=== PATIENT | male | born 1950 | race Caucasian/White ===

== ENCOUNTER 2018-09-03 08:53 | Inpatient (IN) | payer BC, OTHER ==
--- NOTE | 2018-09-03 09:59 | PDOC ---
History of Present Illness - General Chief Complaint: Shortness of Breath Stated Complaint: DIFF BREATHING Time Seen by Provider: 09/03/18 09:55 History Source: Family (Son), [facility] Records Exam Limitations: No Limitations Past History - Travel Traveled outside of the country in the last 30 days: No Close contact w/someone who was outside of country & ill: No - Past Medical History Allergies/Adverse Reactions: Allergies Allergy/AdvReac Type Severity Reaction Status Date / Time No Known Allergies Allergy Verified 09/03/18 09:09 Home Medications: Ambulatory Orders Acetaminophen [Tylenol] 650 mg PO QID PRN 09/03/18 Clonazepam 0.125 mg PO DAILY 09/03/18 Clonazepam 0.25 mg PO DAILY 09/03/18 Clonazepam 0.5 mg PO HS 09/03/18 Doxepin HCl [Sinequan -] 10 mg PO HS 09/03/18 Escitalopram Oxalate [Lexapro -] 10 mg PO DAILY 09/03/18 Magnesium Hydrox 2400MG/30Ml [Milk of Magnesia -] 30 ml PO HS PRN 09/03/18 Polyethylene Glycol 3350 [Miralax (For Daily Use) -] 17 gm PO DAILY 09/03/18 Sennosides [Senna Lax] 17.2 mg PO HS 09/03/18 COPD: Yes Other medical history: hypixic brain injury - Suicide/Smoking/Psychosocial Hx Smoking History: Never smoked Review of Systems - Review of Systems Able to Perform ROS?: No (limited per pt condition) *Physical Exam - Vital Signs Last Vital Signs Temp Pulse Resp BP Pulse Ox 111 H 20 130/86 94 L 09/03/18 09:10 09/03/18 09:10 09/03/18 09:10 09/03/18 09:10 - Physical Exam Comments: febrile, 96% on 4L NC, HR in low 100s on exam. Pt with mild increased WOB, but lying comfortably on NC. Thin body habitus. 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 No midline spinal tenderness, step-offs, or crepitus. Head normocephalic, atraumatic. Eyes PERRLA, EOMI. Oropharynx without erythema or exudates, no LAD b/l. No nasal congestion, hearing intact. Clear heart sounds, S1/S2, no JVD, b/l pedal edema, or heart murmur. Coarse breath sounds throughout, diminished in b/l lower bases with crackles. + intercostal muscle use, improved after oxygenation. No abdominal or CVA tenderness to palpation, no rebound, no guarding. Abdomen soft, non-distended, and with normoactive bowel sounds. Skin without jaundice or rash. 09/03/18 12:15 ED Treatment Course - LABORATORY CBC & Chemistry Diagram: 09/03/18 09:39 09/03/18 09:39 Medical Decision Making - Medical Decision Making Pt was seen at bedside, also will be seen by attending Dr. Xavier. Pt presenting via EMS from [facility] with hypoxia and coughing up sputum and pieces of food. Pt was found this AM with oxygenation 78% on RA, which improved after suctioning and with NRB to 96%. Considering pneumonia (HAP vs aspiration considering recent difficulty swallowing) vs effusion vs pneumothorax vs ACS vs CVA. Unlikely PE as pt responding well to IVF hydration and supplemental oxygen. Story concerning for aspiration given recent choking on nectar and sedating medications. Ordered work-up including septic work-up, cardiac profile, blood cultures, UA, urine culture, chest x-ray. Provided 1 L IV NS and 1 g ofirmev for improvement of fever and likely dehydration. Will continue to reassess pt and monitor for symptomatic improvement. ECG: Sinus tachycardia (Hr 117, NC 152, QRS 84, QTc 435). T wave flattening in inferior and high lateral, TWI in lateral leads. No significant ST segment/ reciprocal changes. No prior ECG for comparison. Chest x-ray showed likely aspiration pneumonia LL lobe. Covering broad spectrum/aspiration abx with IV unasyn, IV vancomycin, IV azithromycin. Provided AM dose of klonopin as pt mildly agitated (per request of son). Placed consult for speech/swallow study. Paged hospitalist team for admission. 09/03/18 12:18 Pt admitted to hospitalist team (Dr. Soni). 09/03/18 13:52 *DC/Admit/Observation/Transfer Diagnosis at time of Disposition: History of traumatic brain injury Aspiration pneumonia due to food (regurgitated) Qualifiers: Laterality: left Lung location: lower lobe of lung Qualified Code(s): J69.0 - Pneumonitis due to inhalation of food and vomit - Discharge Dispostion Condition at time of disposition: Stable Decision to Admit order: Yes - Referrals - Patient Instructions - Post Discharge Activity
[2018-09-03 10:08] LABS: VENOUS PC02 40.7 mmHg (41-51); VENOUS PH 7.42 (7.31-7.41); VENOUS PO2 67.3 mmHg (30-40)
[2018-09-03 10:24] LABS: BASO % 0.2 % (0-2.0); HEMATOCRIT 44.3 % (35.4-49); HEMOGLOBIN 14.7 GM/dL (11.7-16.9); LYMPH % 5.4 % (8-40); MCH 30.4 pg (25.7-33.7); MCHC 33.3 g/dl (32.0-35.9); MEAN CELL VOLUME 91.2 fl (80-96); MEAN PLT VOLUME 8.7 fl (7.5-11.1); MONO % 4.5 % (3.8-10.2); NEUT % 89.9 % (42.8-82.8); RBC 4.86 M/mm3 (4.00-5.60); RDW 13.4 % (11.9-15.9); WHITE BLOOD COUNT 14.4 K/mm3 (4.0-10.0)
[2018-09-03] MEDS ORDERED: ACETAMINOPHEN 1000 MG/100 ML VIAL (NON FORMULARY) IVPB ONE (10:33)
[2018-09-03] MEDS ORDERED: SODIUM CHLORIDE 1,000 ML IV STA (10:34)
[2018-09-03 10:37] LABS: PLATELET COUNT 367 K/MM3 (134-434)
[2018-09-03 10:39] LABS: INR 1.18 (0.83-1.09); PROTHROMBIN TIME (PATIENT) 13.9 SEC (9.7-13.0)
[2018-09-03 10:41] LABS: ACTIVATED PTT 33.8 SECONDS (25.2-36.5); ALBUMIN 3.5 g/dl (3.4-5.0); ALK PHOS 151 U/L (45-117); ANION GAP 4 MMOL/L (8-16); BILIRUBIN,TOTAL 0.3 mg/dL (0.2-1); BLOOD UREA NITROGEN 27.6 mg/dL (7-18); CALCIUM 9.4 mg/dL (8.5-10.1); CHLORIDE 112 mmol/L (98-107); CO2 32 mmol/L (21-32); CREATININE 0.8 mg/dL (0.55-1.3); GLUCOSE,RANDOM 102 mg/dL (74-106); POTASSIUM 4.1 mmol/L (3.5-5.1); SGOT/AST 13 U/L (15-37); SGPT/ALT 22 U/L (13-61); SODIUM 148 mmol/L (136-145); TOT PROT 7.3 g/dl (6.4-8.2)
[2018-09-03] MEDS ORDERED: VANCOMYCIN IVPB ONE (10:48)
[2018-09-03] MEDS ORDERED: WATER IVPB ONE (10:48)
[2018-09-03] MEDS ORDERED: AMPICILLIN NA/SULBACTAM NA 3 GM in SODIUM CHLORIDE 100 ML IVPB ONE (10:48)
[2018-09-03] MEDS ORDERED: DEXTROSE 5% IVPB ONE (10:48)
[2018-09-03] MEDS ORDERED: AZITHROMYCIN IVPB 500 MG in DEXTROSE 5%-WATER - 250 ML IVPB ONE (10:50)
[2018-09-03] MEDS ORDERED: ACETAMINOPHEN INJECTION 100 ML IVPB ONE (10:59)
[2018-09-03] MEDS ORDERED: AZITHROMYCIN IVPB 500 MG/250 ML BAG IVPB ONE ×2 (11:00→20:15)
[2018-09-03] MEDS ORDERED: VANCOMYCIN 1 GRAM (PRE-DOCKED) 1,000 MG/250 ML BAG IVPB ONE (11:00)
[2018-09-03] MEDS ORDERED: clonazePAM 0.5 MG TABLET PO ONE (11:38)
--- NOTE | 2018-09-03 11:52 | EKG ---
Test Reason : Blood Pressure : / mmHG Vent. Rate : 117 BPM Atrial Rate : 117 BPM P-R Int : 152 ms QRS Dur : 084 ms QT Int : 312 ms P-R-T Axes : 075 066 094 degrees QTc Int : 435 ms SINUS TACHYCARDIA POSSIBLE LEFT ATRIAL ENLARGEMENT T WAVE ABNORMALITY, CONSIDER INFEROLATERAL ISCHEMIA ABNORMAL ECG NO PREVIOUS ECGS AVAILABLE Confirmed by SANDY PEGUERO MD ([id number]) on 09/03/2018 11:51:54 AM Referred By: Confirmed By:SANDY PEGUERO MD
--- NOTE | 2018-09-03 13:40 | PDOC ---
Documentation entered by Dora Man SCRIBE, acting as scribe for Jarred Xavier MD. Jarred Xavier MD: This documentation has been prepared by the scribe, Dora Man SCRIBE, under my direction and personally reviewed by me in its entirety. I confirm that the documentation accurately reflects all work, treatment, procedures, and medical decision making performed by me. Attending Attestation - Resident Resident Name: Rocio Bentley - ED Attending Attestation I have performed the following: I have examined & evaluated the patient, The case was reviewed & discussed with the resident, I agree w/resident's findings & plan, Exceptions are as noted - HPI HPI: 09/03/18 11:13 The patient is a 67-year-old male, with a past medical history of TBI (2017) s/ p cardiac arrest complicated by UTI and deterioration, COPD, who presents to the ED with increased shortness of breath. Patient was in a rehab center s/p TBI and SC. He was making improvements in walking and talking, but came down with a UTI a few months ago and was experiencing increased agitation. He was started on Zyprexa 5mg BID. Patients son who is also a physician was notified on (08/31/18) that the rehab center was giving the incorrect dosage of 10mg BID. The patient denies fevers, chills, nausea, vomiting, diarrhea, or abdominal pain. Denies any chest pain or palpitations. Allergies: NKA Social History: Denies any tobacco, alcohol or IVDA. Surgical History: None reported. - Physicial Exam PE: GENERAL: The patient is awake, HEAD: Normocephalic, atraumatic. EYES: extraocular movements intact, sclera anicteric, conjunctiva clear. ENT: Normal voice, Moist mucous membranes. NECK: Normal range of motion, supple LUNGS: raltes at bases, HEART: tachucardic without murmur, rub or gallop. ABDOMEN: Soft, nontender, No guarding, no rebound.No CVA tenderness EXTREMITIES: Normal range of motion, no edema. PSYCH: Normal mood, normal affect. SKIN: hot to touch, Dry, normal turgor - Medical Decision Making 09/03/18 10:43 67y F hx of anoxic brain injury sp cardiac arrests, uti, deterioration, copd, presents with sob, pt with recent history of choking/aspiration when eating. pt noted hypxoic here. history limited. ddx likely aspiratoin pna sepsis orderset obtained tylenol for fever 09/03/18 13:59 lbas reviewed noted for LLL pna will cover for aspiration/hcap will admit for further management CRITICAL CARE DOCUMENTATION: I spent 45 minutes of Critical Care time, excluding separately billable procedures, involving high complexity decision making to assess, manipulate and support vital system function(s) to treat single or multiple vital organ system failure and/or to prevent further life threatening deterioration of the patient' s condition.
[2018-09-03] MEDS ORDERED: ALBUTEROL SO4 2.5/IPRATROPIUM 0.5 INH SOL 3 ML VIAL.NEB. NEB PRN (14:21)
[2018-09-03] MEDS ORDERED: ACETAMINOPHEN 1000 MG/100 ML VIAL (NON FORMULARY) IVPB PRN (14:24)
--- NOTE | 2018-09-03 14:43 | HP ---
Admitting History and Physical - Primary Care Physician PCP: Dr. 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 Patient is a resident of [facility] for rehabilitation. He presents via EMS from [facility] with hypoxia and coughing up sputum and pieces of food. Patient was found this with oxygenation 78% on room air, which improved after suctioning and with NRB to 96%. He is currently on 2 liters of nasal cannula with stable saturations of 96%. Patient is unable to provide a history secondary to dementia and TBI, he is able to answer some questions but defers to his sons who are in the room during exam. Son reports that he was receiving an incorrect dose of [place]re[place] at the [place] and noted his father to be more lethargic. Patient reportedly was on Zyprexa 5mg BID, but was receiving Zyprexa 10mg BID instead. ED course: - 102.4F, heart rate 111, 94%, WBC 14.4 - Given Vancomycin, Azithromycin and Unasyn in the ED - vb.4, 24.7, 67.3, 93.2 - hypernatremia 148 - chest xray LLL pneumonia - ekg: Sinus tachycardia @ 117, qtc 35. (twave flat in inferior lead) no significant ST segment changes. Advanced Directives: Patient has a [facility] DNR order dated 03/21/18 alongside legal paperwork labeled "commission to guardian" naming Neil Ireland MD (son) as his guardian. 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, Other (traumatic brain injury) Cardiovascular: Yes: Other Pulmonary: Yes: COPD Psych: Yes: Depression, Other (TBI) - Advance Directives Advance Directives: Yes: DNR - Smoking History Smoking history: Never smoked Have you smoked in the past 12 months: No - Alcohol/Substance Use History of Substance Use: reports: None - Social History Usual Living Arrangement: Yes: Correction ADL: Support Services History of Recent Travel: No Home Medications - Allergies Allergies/Adverse Reactions: Allergies Allergy/AdvReac Type Severity Reaction Status Date / Time No Known Allergies Allergy Verified 09/03/18 09:09 - Home Medications Home Medications: Ambulatory Orders Acetaminophen [Tylenol] 650 mg PO QID PRN 09/03/18 Clonazepam 0.125 mg PO DAILY 09/03/18 Clonazepam 0.25 mg PO DAILY 09/03/18 Clonazepam 0.5 mg PO HS 09/03/18 Doxepin HCl [Sinequan -] 10 mg PO HS 09/03/18 Escitalopram Oxalate [Lexapro -] 10 mg PO DAILY 09/03/18 Magnesium Hydrox 2400MG/30Ml [Milk of Magnesia -] 30 ml PO HS PRN 09/03/18 Polyethylene Glycol 3350 [Miralax (For Daily Use) -] 17 gm PO DAILY 09/03/18 Sennosides [Senna Lax] 17.2 mg PO HS 09/03/18 Review of Systems Unable to obtain ROS, reason: dementia and TBI Physical Examination Vital Signs: Vital Signs Temperature 102.4 F H 09/03/18 09:45 Pulse Rate 111 H 09/03/18 09:10 Respiratory Rate 20 09/03/18 09:10 Blood Pressure 130/86 09/03/18 09:10 O2 Sat by Pulse Oximetry (%) 94 L 09/03/18 09:45 Constitutional: Yes: Calm, Mild Distress Eyes: Yes: WNL HENT: Yes: Atraumatic Neck: Yes: Supple Cardiovascular: Yes: Tachycardia Respiratory: Yes: Accessory Muscle Use, On Nasal O2, Poor Air Entry, Rales, Rhonchi, SOB, SOB on Exertion Gastrointestinal: Yes: WNL ...Rectal Exam: Yes: Deferred Musculoskeletal: Yes: Muscle Weakness Edema: No Integumentary: Yes: WNL Neurological: Yes: Confusion, Lethargy, Unsteady Gait, Weakness Psychiatric: Yes: Agitated (dementia with agitation) Labs: CBC, BMP 09/03/18 09:39 09/03/18 09:39 Imaging - Results Chest X-ray: Image Reviewed EKG: Image Reviewed Problem List - Problems (1) Sepsis Assessment/Plan: Patient presents to the ED with acute hypoxia, non productive cough, worsening AMS and leukocytosis Chest xray shows left lower lobe infiltrate On exam, patient has congestion on anterior lungs, his left lung is clear compared to the right Sepsis likely secondary to acute aspiration pneumonia Given Azithromycin, Vanco and Unasyn in the ED Consulted ID, and recommend patient to be started on Zosyn Will further: - make npo pending speech and swallow - continue home meds with applesauce - maintain aspiration precautions - tylenol ivpb for fevers - Zosyn per ID recommendations Awaiting further recommendations per ID and Speech/swallow Code(s): A41.9 - SEPSIS, UNSPECIFIED ORGANISM (2) Aspiration pneumonia due to food (regurgitated) Assessment/Plan: keep NPO Patient likely aspirating secondary to increased lethargy from NH from increased dose of Zyprexa Will hold Zyprexa until mental status is back to his baseline Code(s): J69.0 - PNEUMONITIS DUE TO INHALATION OF FOOD AND VOMIT Qualifiers: Laterality: left Lung location: lower lobe of lung Qualified Code(s): J69.0 - Pneumonitis due to inhalation of food and vomit (3) Major depressive disorder Assessment/Plan: continue Clonazepam scheduled and lexapro hold Zyprexa Code(s): F32.9 - MAJOR DEPRESSIVE DISORDER, SINGLE EPISODE, UNSPECIFIED (4) Traumatic brain injury of unknown intent Assessment/Plan: Monitor mental status and agitation Code(s): S06.9X9A - UNSP INTRACRANIAL INJURY W LOC OF UNSP DURATION, INIT (5) History of chronic constipation Code(s): Z87.19 - PERSONAL HISTORY OF OTHER DISEASES OF THE DIGESTIVE SYSTEM (6) Requires aspiration precautions Assessment/Plan: Keep NPO, allow applesauce with medications Code(s): Z91.89 - OTH PERSONAL RISK FACTORS, NOT ELSEWHERE CLASSIFIED (7) History of traumatic brain injury Assessment/Plan: monitor mental status Code(s): Z87.820 - PERSONAL HISTORY OF TRAUMATIC BRAIN INJURY (8) Restlessness and agitation Assessment/Plan: On scheduled Clonozepam Code(s): R45.1 - RESTLESSNESS AND AGITATION (9) Prophylactic measure Assessment/Plan: fen NS @ 75/cchr monitor electrolyltes NPO pending swallow evaluation prophy SCDs physical therapy Code(s): Z29.9 - ENCOUNTER FOR PROPHYLACTIC MEASURES, UNSPECIFIED Visit type - Emergency Visit Emergency Visit: Yes ED Registration Date: 09/03/18 Care time: The patient presented to the Emergency Department on the above date and was hospitalized for further evaluation of their emergent condition. - New Patient This patient is new to me today: Yes Date on this admission: 09/03/18 - Critical Care Critical Care patient: No
[2018-09-03] MEDS ORDERED: SODIUM CHLORIDE 1,000 ML IV SCH (16:45)
[2018-09-03] MEDS ORDERED: PIPERACILLIN/TAZOBACTAM 3.375 GM VIAL IVPB ONE (18:08)
[2018-09-03] MEDS ORDERED: DEXTROSE 5%-WATER - 50 ML IVPB ONE (18:08)
[2018-09-03] MEDS: PIPERACILLIN/TAZOB 3.375 GM 3.375 GM in DEXTROSE 5%-WATER - 50 ML IVPB SCH (18:39)
[2018-09-03] MEDS: SODIUM CHLORIDE 1,000 ML IV SCH (20:08)
[2018-09-03] MEDS: ALBUTEROL SO4 2.5/IPRATROPIUM 0.5 INH SOL 3 ML VIAL.NEB. NEB SCH (20:32)
[2018-09-03] MEDS: HEPARIN NA (PORCINE) 5,000 UNITS/ML 1ML VIAL SQ SCH (21:19)
[2018-09-03] MEDS: clonazePAM 0.5 MG TABLET PO SCH (22:04)
[2018-09-03] MEDS: DOXEPIN HCL 10 MG CAPSULE PO SCH (22:09)
[2018-09-04] MEDS ORDERED: PIPERACILLIN/TAZOBACTAM 3.375 GM VIAL IVPB ONE ×3 (00:03→17:40)
[2018-09-04] MEDS ORDERED: DEXTROSE 5%-WATER - 50 ML IVPB ONE ×3 (00:03→17:40)
[2018-09-04] MEDS: ALBUTEROL SO4 2.5/IPRATROPIUM 0.5 INH SOL 3 ML VIAL.NEB. NEB SCH ×5 (00:35→20:45)
[2018-09-04] MEDS: PIPERACILLIN/TAZOB 3.375 GM 3.375 GM in DEXTROSE 5%-WATER - 50 ML IVPB SCH ×4 (01:34→17:50)
--- NOTE | 2018-09-04 08:32 | PN ---
Progress Note, Physician Chief Complaint: no overnight agitation or events reported. pt laying comfortably in bed. respirations easy and unlabored. 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 Patient is a resident of [facility] for rehabilitation. He presents to the ED on 09/03/2018 via EMS from [facility] with hypoxia and coughing up sputum and pieces of food. Patient was found with oxygenation 78% on room air, which improved after suctioning and with NRB to 96% . He is currently on 2 liters of nasal cannula with stable saturations of 96% . Patient is unable to provide a history secondary to dementia and TBI, he is able to answer some questions. In the ED son reported that patient was receiving an incorrect dose of Zyprexa at the [place] and noted his father to be more lethargic. Patient reportedly was on Zyprexa 5mg BID, but was receiving Zyprexa 10mg BID instead. He is being admitted for sepsis likely secondary to aspiration pneumonia and has been started on Zosyn. He remains NPO pending a swallow evaluation. - Current Medication List Current Medications: Active Medications Acetaminophen (Ofirmev Injection -) 1,000 mg IVPB Q6H PRN PRN Reason: FEVER Albuterol/Ipratropium (Duoneb -) 1 amp NEB Q6H [facility] Last Admin: 09/04/18 07:25 Dose: 1 amp Clonazepam (Klonopin -) 0.5 mg PO [facility] Last Admin: 09/03/18 22:04 Dose: 0.5 mg Clonazepam (Klonopin -) 0.25 mg PO DAILY [facility] Doxepin HCl (Sinequan -) 10 mg PO [facility] Last Admin: 09/03/18 22:09 Dose: 10 mg Escitalopram Oxalate (Lexapro -) 10 mg PO DAILY [facility] Heparin Sodium (Porcine) (Heparin -) 5,000 unit SQ BID [facility] Last Admin: 09/03/18 21:19 Dose: 5,000 unit Piperacillin Sod/Tazobactam (Sod 3.375 gm/ Dextrose) 50 mls @ 100 mls/hr IVPB Q8H-IV [facility]; Protocol Piperacillin Sod/Tazobactam (Sod 3.375 gm/ Dextrose) 50 mls @ 100 mls/hr IVPB Q8H-IV [facility]; Protocol Stop: 09/04/18 10:29 Last Admin: 09/04/18 01:34 Dose: 100 mls/hr Sodium Chloride (Normal Saline -) 1,000 mls @ 75 mls/hr IV ASDIR [facility]ARA Stop: 09/04/18 16:32 Last Admin: 09/03/18 20:08 Dose: Not Given - Objective Vital Signs: Vital Signs Temperature 98.7 F 09/04/18 04:00 Pulse Rate 75 09/04/18 04:00 Respiratory Rate 18 09/04/18 04:00 Blood Pressure 112/68 09/04/18 04:00 O2 Sat by Pulse Oximetry (%) 96 09/03/18 21:00 Constitutional: Yes: No Distress, Calm Eyes: Yes: WNL HENT: Yes: WNL, Atraumatic Neck: Yes: Supple Cardiovascular: Yes: Regular Rate and Rhythm Respiratory: Yes: Diminished, On Nasal O2, Rhonchi Gastrointestinal: Yes: Normal Bowel Sounds, Soft ...Rectal Exam: Yes: Deferred Genitourinary: Yes: WNL Musculoskeletal: Yes: Muscle Weakness Extremities: Yes: WNL Edema: No Integumentary: Yes: WNL Wound/Incision: Yes: Clean/Dry Neurological: Yes: Alert, Confusion Labs: CBC, BMP 09/03/18 09:39 09/03/18 09:39 INR, PTT INR 1.18 (0.83-1.09) H 09/03/18 09:39 - ....Imaging Chest X-ray: Report Reviewed EKG: Image Reviewed Problem List - Problems (1) Sepsis Assessment/Plan: Patient presents to the ED with acute hypoxia, non productive cough, worsening AMS and leukocytosis Chest xray shows left lower lobe infiltrate On exam, patient has congestion on anterior lungs, his left lung is clear compared to the right Sepsis likely secondary to acute aspiration pneumonia Given Azithromycin, Vanco and Unasyn in the ED, started on Zosyn per ID Modified barium swallow recommendations noted and added to diet: dysphagia pureed, honey thick fluids. Appreciate ID and swallow evaluation recommendations. Code(s): A41.9 - SEPSIS, UNSPECIFIED ORGANISM (2) Aspiration pneumonia due to food (regurgitated) Assessment/Plan: continue aspiration precautions -Patient to sit up at all times with meals -feed small amounts slowly -do not lay flat after meals -do not eat or drink with a straw -daily mouth care -per mbs: honey thick liquids on teaspoon only, have patient swallow hard twice with each teaspoon, crush meds on honey thick liq. speech and swallow following, recommendations noted and appreciated. Code(s): J69.0 - PNEUMONITIS DUE TO INHALATION OF FOOD AND VOMIT Qualifiers: Laterality: left Lung location: lower lobe of lung Qualified Code(s): J69.0 - Pneumonitis due to inhalation of food and vomit (3) Major depressive disorder Assessment/Plan: continue Clonazepam scheduled and lexapro hold Zyprexa Code(s): F32.9 - MAJOR DEPRESSIVE DISORDER, SINGLE EPISODE, UNSPECIFIED (4) Traumatic brain injury of unknown intent Assessment/Plan: Monitor mental status and agitation Code(s): S06.9X9A - UNSP INTRACRANIAL INJURY W LOC OF UNSP DURATION, INIT (5) History of chronic constipation Assessment/Plan: colace liquid, bowel regimen Code(s): Z87.19 - PERSONAL HISTORY OF OTHER DISEASES OF THE DIGESTIVE SYSTEM (6) Requires aspiration precautions Assessment/Plan: aspiration precautions as noted above Code(s): Z91.89 - OTH PERSONAL RISK FACTORS, NOT ELSEWHERE CLASSIFIED (7) History of traumatic brain injury Assessment/Plan: monitor mental status Code(s): Z87.820 - PERSONAL HISTORY OF TRAUMATIC BRAIN INJURY (8) Restlessness and agitation Assessment/Plan: On scheduled Clonozepam Code(s): R45.1 - RESTLESSNESS AND AGITATION (9) Prophylactic measure Assessment/Plan: fen NS @ 75/cchr until fully tolerating meals monitor electrolyltes honey thick liquids, aspiration precautions, dysphagia pureed diet. prophy SCDs physical therapy Code(s): Z29.9 - ENCOUNTER FOR PROPHYLACTIC MEASURES, UNSPECIFIED Visit type - Emergency Visit Emergency Visit: Yes ED Registration Date: 09/03/18 Care time: The patient presented to the Emergency Department on the above date and was hospitalized for further evaluation of their emergent condition. - New Patient This patient is new to me today: No - Critical Care Critical Care patient: No - Discharge Referral [facility]erred to [facility] No
[2018-09-04 08:53] LABS: HEMATOCRIT 34.2 % (35.4-49); HEMOGLOBIN 11.4 GM/dL (11.7-16.9); MCH 30.3 pg (25.7-33.7); MCHC 33.2 g/dl (32.0-35.9); MEAN CELL VOLUME 91.2 fl (80-96); MEAN PLT VOLUME 8.6 fl (7.5-11.1); PLATELET COUNT 285 K/MM3 (134-434); RBC 3.75 M/mm3 (4.00-5.60); RDW 13.4 % (11.9-15.9); WHITE BLOOD COUNT 12.3 K/mm3 (4.0-10.0)
[2018-09-04 09:26] LABS: INR 1.31 (0.83-1.09); PROTHROMBIN TIME (PATIENT) 15.5 SEC (9.7-13.0)
[2018-09-04] MEDS: ESCITALOPRAM OXALATE 10 MG TABLET (FP) PO SCH (09:39)
[2018-09-04] MEDS: clonazePAM 0.5 MG TABLET PO SCH ×2 (09:39→21:45)
[2018-09-04] MEDS: HEPARIN NA (PORCINE) 5,000 UNITS/ML 1ML VIAL SQ SCH ×2 (09:39→21:45)
[2018-09-04 09:49] LABS: ALBUMIN 2.6 g/dl (3.4-5.0); BILIRUBIN,TOTAL 0.8 mg/dL (0.2-1); BLOOD UREA NITROGEN 22.2 mg/dL (7-18); CREATININE 0.8 mg/dL (0.55-1.3); MAGNESIUM 2.1 mg/dL (1.8-2.4); PHOSPHOROUS 3.2 mg/dL (2.5-4.9); POTASSIUM 3.7 mmol/L (3.5-5.1); TOT PROT 5.5 g/dl (6.4-8.2)
[2018-09-04] MEDS: SODIUM CHLORIDE 1,000 ML IV SCH (09:53)
[2018-09-04] MEDS ORDERED: clonazePAM 0.5 MG TABLET PO SCH (10:00)
--- NOTE | 2018-09-04 12:31 | PN ---
Progress Note (short form) - Note Progress Note: ID CONSULT DICTATED PROBABLE ASP PNEUMONIA FEVER/TACHYCARDIA/ LEUKOCYTOSIS R/O SEPSIS SECONDARY TO LUNG SOURCE HX ANOXIC /TRAUMATIC BRAIN INJURY AWAIT C/S [facility] WITH ZOSYN
--- NOTE | 2018-09-04 13:01 | CONSULT ---
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 Patient is a resident of [facility] for rehabilitation. He presents via EMS from [facility] with hypoxia and coughing up sputum and pieces of food. Patient was found this with oxygenation 78% on room air, which improved after suctioning and with NRB to 96%. He is currently on 2 liters of nasal cannula with stable saturations of 96%. ID CONSULT - PROBABLE ASP PNEUMONIA FEVER/TACHYCARDIA/ LEUKOCYTOSIS R/O SEPSIS SECONDARY TO LUNG SOURCE HX ANOXIC /TRAUMATIC BRAIN INJURY History Source: Medical Record Limitations to Obtaining History: Clinical Condition, Dementia - Past Medical History [facility]: Yes: Dementia, Other (traumatic brain injury) Cardiovascular: Yes: Other Pulmonary: Yes: COPD Psych: Yes: Depression, Other (TBI) - Advance Directives Advance Directives: Yes: DNR - Smoking History Smoking history: Never smoked Have you smoked in the past 12 months: No - Alcohol/Substance Use Hx Alcohol Use: No History of Substance Use: reports: None - Social History ADL: Support Services History of Recent Travel: No History - Admission Reason For Visit: TRAUMATIC BRAIN INJURY;ASPIRATION PNEUMONIA;PNEUMO - Diagnostics X-ray: Report Reviewed (LLL PNA) - General Mental Status: Awake and Alert, Able to Follow Commands, Forgetful, Vague, Confused, Flat Affect Attention: Distractible, Moderate Impairment Ability to Follow Directions: Fair Head/Neck Control: Fair - Hearing Hearing: Normal Hearing Aide: No With Patient: No Speech Evaluation - Communication Primary Language: GABONESE Communication: Yes: Simple Responses Oral Expression Ability: Yes: Mild Impairment, Moderate Impairment - Speech Production Able to Make Needs Known: Yes: Mildly Impaired, Moderately Impaired Intelligibility: Yes: Mildly Impaired - Speech Characteristics Voice Loudness: Mildly Soft/Quiet Voice Pitch: Yes: Normal Voice Phonatory-based Quality: Yes: Dysphonia Speech Pattern: Impaired Speech Clarity: < 50% Nasal Resonance: Hypernasal Articulation: Yes: Imprecise Dysfluency: Yes: Clonic Rate of Speech: Too Slow - Language/Auditory Comprehension Follows: Yes: 1 Stage Simple Commands Observation: Able to respond to yes/no queries: Yes, Yes/No Confusion: Yes ( needs repetition, confused), Comprehends Conversational Speech: Yes (simple), Benefits from Slow Speech: Yes, Benefits from Repetiton: Yes, Benefits from Increased Volume of Speech: Yes - Language/Verbal Expression Aphasia: Yes: Anomia Able to Respond to Simple Queries: Yes: Mildly Impaired, Moderately Impaired Able to Communicate Wants and Needs: Yes: Mildly Impaired, Moderately Impaired Functional Communication Status: Yes: Mildly Impaired, Moderately Impaired - Memory/Perception assisted Memory: Yes: Moderately Impaired (suspected) - Swallow Evaluation/Bedside Assessment Current Nutritional Intake: NPO, Other (meds) Oral Secretions: Yes: Tongue Coated (receiving mouth care) Dentition: Yes: Adequate Facial Symmetry at Rest: Symmetrical Facial Symmetry on Retraction: Symmetrical Against Resistance Opening: Weak Against Resistance Closing: Weak Lingual Movement: Symmetric Lingual Movement Strgth Against Opposition: Reduced Lingual Movement Characteristics: Normal Gag Reflex: Strong Velopharyngeal Movement: Normal Laryngeal Movement: Labored,delay initiation Bolus Size: Small Labial Seal: WFL (needs reminders to close mouth and swallow) Oral Prep Time: Increased Timing of Swallow: Delayed Coughing/Throat Clear: Yes (thin liquid) Recommendations - Speech Evaluation, Impression/Plan Impression: Suspect distractibility adversely affecting swallowing function. Aspiration on thin liquid - Disposition Discharge to: Nursing Home Facility - Dysphagia Impressions/Plan Swallowing Skills: Impaired Dysphagia Impressions: Ongoing Evaluation, Suspect Aspiration *Silent aspiration: cannot be R/O at bedside Recommendations: Modified Barium Swallow - Recommendations Medication Administration: Crushed with applesauce
--- NOTE | 2018-09-04 14:35 | CONS ---
INFECTIOUS DISEASE CONSULTATION DATE OF CONSULTATION: DATE OF DICTATION: 09/04/2018 HISTORY: The patient is a 67-year-old male with a history of anoxic brain injury status post cardiopulmonary arrest in 2017 evaluated for pneumonia. History would be from the chart as well as the patient's son by phone. He has been in a long term facility for the past 2 years after a cardiopulmonary arrest complicated by anoxic brain injury. He was noted to be short of breath at the facility with a moist cough. He was also noted to be hypoxemic with an O2 saturation of 78% on room air. He was transferred to the emergency room where the patient was febrile to 102.4 and noted to have a white blood cell count of 14.4. Cultures were obtained. He was empirically treated with Unasyn, vancomycin, Zithromax. At the present time, he is awake and alert; however, he is unable to give any additional history. Patient appears demented. His breathing is nonlabored. He is noted to have cough. No documented history of resistant respiratory tract pathogens. The patient was high functioning until 2 years ago. 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 While jogging in [place] in 2017, he suffered a cardiopulmonary arrest and was resuscitated after 10 minutes. He suffered anoxic brain injury as a result. Since that time, he has been in various rehabilitation facilities. His baseline now is he is dependent in activities of daily living. PAST MEDICAL HISTORY: Also includes COPD, anxiety, depression. ALLERGIES: No known allergies. MEDICATIONS: Include Tylenol, albuterol, Klonopin, Lexapro. SOCIAL HISTORY: As per HPI. He was a former athlete. Nonsmoker, nondrinker. SYSTEMS REVIEW: Neurologic: Positive for anoxic brain injury and dementia. Cardiac: Negative chest pain or palpitations. Respiratory: As per HPI. Gastrointestinal: Negative vomiting or diarrhea. Genitourinary: Negative for urinary tract infection. LABORATORY DATA: White count on admission 14.4, presently 12.3, hematocrit 34.2, platelet count 285, creatinine 0.8. Liver enzymes normal. Chest x-ray: Unable to visualize left hemidiaphragm. PHYSICAL EXAMINATION: General: He is awake but confused. He is in no acute distress. Breathing is nonlabored. He is noted to have a cough. Vital Signs: Temperature 98.7, maximum temperature 102.4, blood pressure 112/68, pulse 75 regular, respirations 18 per minute. HEENT: Sclerae anicteric. Heart: Sounds S1, S2. Lungs: Rales at the bases bilaterally. Abdomen: Soft. No tenderness elicited. No mass, rebound, or rigidity. Extremities: Negative for edema. IMPRESSION: 1. Probable aspiration, left lower lobe pneumonia. 2. Fever, tachycardia, leukocytosis, rule out sepsis secondary to lung source. 3. History of anoxic/traumatic brain injury. Await sepsis workup. Empiric antibiotic coverage healthcare-acquired pulmonary pathogens with Zosyn. Aspiration precautions. Case was discussed with patient's son, who is a physician, by phone. Thank you for the kind referral. GLORIA MENDOZA M.D. [id number]
[2018-09-04] MEDS ORDERED: PT OWN MED DRAWER 7, Y5N ONE (21:15)
[2018-09-04] MEDS: DOXEPIN HCL 10 MG CAPSULE PO SCH (21:45)
[2018-09-04] MEDS ORDERED: SENNOSIDES/DOCUSATE COMBO (SENNA PLUS) TABLET (UD) PO SCH (22:00)
[2018-09-05] MEDS ORDERED: DEXTROSE 5%-WATER - 50 ML IVPB ONE ×3 (01:37→17:46)
[2018-09-05] MEDS ORDERED: PIPERACILLIN/TAZOBACTAM 3.375 GM VIAL IVPB ONE ×3 (01:37→17:46)
[2018-09-05] MEDS: PIPERACILLIN/TAZOB 3.375 GM 3.375 GM in DEXTROSE 5%-WATER - 50 ML IVPB SCH ×3 (02:00→17:58)
[2018-09-05] MEDS: ALBUTEROL SO4 2.5/IPRATROPIUM 0.5 INH SOL 3 ML VIAL.NEB. NEB SCH ×4 (07:35→20:30)
--- NOTE | 2018-09-05 09:56 | CON.PULM ---
Consult Consult Specialty:: PULMONARY Referred by:: MIL Gonzalez Reason for Consultation:: shortness of breath - History of Present Illness Chief Complaint: shortness of breath History of Present Illness: 67yo male with h/o TBI, depression/anxiety, COPD, dementia [facility] and [facility]ing. Found to be hypoxic to 78% on room air and LLL infiltrate on CXR. Currently denies any shortness of breath, cough or wheezing. Was febrile to 102.4 on presentation. 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: Yes: Dementia, Other (traumatic brain injury) Cardio/Vascular: Yes: Other Pulmonary: Yes: COPD Psych: Yes: Depression, Other (TBI) - Alcohol/Substance Use Hx Alcohol Use: No History of Substance Use: reports: None - Smoking History Smoking history: Never smoked Have you smoked in the past 12 months: No - Social History ADL: Support Services History of Recent Travel: No Home Medications - Allergies Allergies/Adverse Reactions: Allergies Allergy/AdvReac Type Severity Reaction Status Date / Time No Known Allergies Allergy Verified 09/03/18 09:09 - Home Medications Home Medications: Ambulatory Orders Acetaminophen [Tylenol] 650 mg PO QID PRN 09/03/18 Clonazepam 0.125 mg PO DAILY 09/03/18 Clonazepam 0.25 mg PO DAILY 09/03/18 Clonazepam 0.5 mg PO HS 09/03/18 Doxepin HCl [Sinequan -] 10 mg PO HS 09/03/18 Escitalopram Oxalate [Lexapro -] 10 mg PO DAILY 09/03/18 Magnesium Hydrox 2400MG/30Ml [Milk of Magnesia -] 30 ml PO HS PRN 09/03/18 Polyethylene Glycol 3350 [Miralax (For Daily Use) -] 17 gm PO DAILY 09/03/18 Sennosides [Senna Lax] 17.2 mg PO HS 09/03/18 Review of Systems - Review of Systems Constitutional: denies: Chills, Fever Eyes: denies: Recent Change in Vision HENT: denies: Nasal Congestion, Throat Pain Neck: denies: Stiffness, Tenderness Cardiovascular: denies: Chest Pain, Shortness of Breath Respiratory: denies: Cough, Wheezing Gastrointestinal: denies: Abdominal Pain, Nausea, Vomiting Genitourinary: denies: Dysuria, Hematuria Neurological: denies: Dizziness, Headache Endocrine: denies: Unexplained Weight Loss Physical Exam Vital Sings: Vital Signs Temperature 98.8 F 09/05/18 06:00 Pulse Rate 70 09/05/18 06:00 Respiratory Rate 20 09/05/18 06:00 Blood Pressure 124/77 09/05/18 06:00 O2 Sat by Pulse Oximetry (%) 99 09/04/18 21:00 Constitutional: Yes: Calm Eyes: Yes: Conjunctiva Clear, EOM Intact HENT: Yes: Atraumatic, Normocephalic Neck: Yes: Supple, Trachea Midline Cardiovascular: Yes: Regular Rate and Rhythm Respiratory: Yes: Diminished (decreased breath sounds at the bases) ...Clubbing: No Gastrointestinal: Yes: Normal Bowel Sounds, Soft. No: Tenderness Edema: No Neurological: Yes: Alert, Confusion Labs: CBC, BMP 09/04/18 07:35 09/04/18 07:35 Imaging - Results Chest X-ray: Report Reviewed, Image Reviewed (LLL infiltrate) Problem List - Problems (1) Pneumonia Code(s): J18.9 - PNEUMONIA, UNSPECIFIED ORGANISM (2) Sepsis Code(s): A41.9 - SEPSIS, UNSPECIFIED ORGANISM Assessment/Plan Pneumonia likely Aspiration Sepsis COPD Dementia h/o TBI - continue antibiotics per ID - f/u cultures - O2 to keep SpO2 >90% - inhaled bronchodilators as needed - aspiration precautions - DVT prophylaxis Thank you for this consult Alexander Love MD
[2018-09-05] MEDS ORDERED: DOCUSATE NA 100 MG/10 ML UNIT-DOSE CUPS PO PRN (10:00)
[2018-09-05] MEDS: clonazePAM 0.5 MG TABLET PO SCH ×2 (10:22→21:44)
[2018-09-05] MEDS: ESCITALOPRAM OXALATE 10 MG TABLET (FP) PO SCH (10:22)
[2018-09-05] MEDS: HEPARIN NA (PORCINE) 5,000 UNITS/ML 1ML VIAL SQ SCH ×2 (10:22→21:43)
--- NOTE | 2018-09-05 12:52 | PN ---
Progress Note, Physician Chief Complaint: hypoxia History of Present Illness: feeling ok, no events overnight. Afebrile. - Current Medication List Current Medications: Active Medications Acetaminophen (Ofirmev Injection -) 1,000 mg IVPB Q6H PRN PRN Reason: FEVER Albuterol/Ipratropium (Duoneb -) 1 amp NEB RQID [facility] Last Admin: 09/05/18 11:31 Dose: 1 amp Clonazepam (Klonopin -) 0.5 mg PO [facility] Last Admin: 09/04/18 21:45 Dose: 0.5 mg Clonazepam (Klonopin -) 0.25 mg PO DAILY [facility] Last Admin: 09/05/18 10:22 Dose: 0.25 mg Docusate Sodium (Colace Liquid -) 100 mg PO DAILY PRN PRN Reason: CONSTIPATION Doxepin HCl (Sinequan -) 10 mg PO [facility] Last Admin: 09/04/18 21:45 Dose: 10 mg Escitalopram Oxalate (Lexapro -) 10 mg PO DAILY [facility] Last Admin: 09/05/18 10:22 Dose: 10 mg Heparin Sodium (Porcine) (Heparin -) 5,000 unit SQ BID [facility] Last Admin: 09/05/18 10:22 Dose: 5,000 unit Piperacillin Sod/Tazobactam (Sod 3.375 gm/ Dextrose) 50 mls @ 100 mls/hr IVPB Q8H-IV [facility]; Protocol Last Admin: 09/05/18 10:20 Dose: 100 mls/hr Senna/Docusate Sodium (Pericolace -) 2 tablet PO [facility] Stop: 09/05/18 17:23 Last Admin: 09/04/18 21:45 Dose: 2 tablet - Objective Vital Signs: Vital Signs Temperature 98.8 F 09/05/18 06:00 Pulse Rate 70 09/05/18 06:00 Respiratory Rate 20 09/05/18 06:00 Blood Pressure 124/77 09/05/18 06:00 O2 Sat by Pulse Oximetry (%) 99 09/04/18 21:00 Constitutional: Yes: Well Nourished, No Distress, Calm Cardiovascular: Yes: WNL, Regular Rate and Rhythm Respiratory: Yes: On Nasal O2, Rales (at bases). No: Accessory Muscle Use, Cough Gastrointestinal: Yes: WNL, Normal Bowel Sounds, Soft Musculoskeletal: Yes: WNL Extremities: Yes: WNL Edema: No Neurological: Yes: Alert, Oriented (to person only) Labs: CBC, BMP 09/04/18 07:35 09/04/18 07:35 INR, PTT INR 1.31 (0.83-1.09) H 09/04/18 07:35 Problem List - Problems (1) Aspiration pneumonia due to food (regurgitated) Code(s): J69.0 - PNEUMONITIS DUE TO INHALATION OF FOOD AND VOMIT Qualifiers: Laterality: left Lung location: lower lobe of lung Qualified Code(s): J69.0 - Pneumonitis due to inhalation of food and vomit (2) History of traumatic brain injury Code(s): Z87.820 - PERSONAL HISTORY OF TRAUMATIC BRAIN INJURY (3) Major depressive disorder Code(s): F32.9 - MAJOR DEPRESSIVE DISORDER, SINGLE EPISODE, UNSPECIFIED (4) Requires aspiration precautions Code(s): Z91.89 - OTH PERSONAL RISK FACTORS, NOT ELSEWHERE CLASSIFIED (5) Restlessness and agitation Code(s): R45.1 - RESTLESSNESS AND AGITATION (6) Sepsis Code(s): A41.9 - SEPSIS, UNSPECIFIED ORGANISM (7) Hypernatremia Code(s): E87.0 - HYPEROSMOLALITY AND HYPERNATREMIA Assessment/Plan Assessment: Acute Hypoxic Respiratory Failure/Sepsis secondary to aspiration LLL pneumonia COPD Dementia h/o TBI Major Depressive Disorder Chronic Constipation Plan: Continue abx, on zosyn for hcap Inhaled bronchodilators Aspiration precautions Legionella/strep neg, blood and sputum cx neg Supplemental 02 as needed Hypernatremia improving, fluids DC, awaiting repeat labs Speech/Swallow eval noted, barium swallow recs noted, agree with recommendations ID/pulm eval appreciated Mood stable, continue with clonazepam, doxepin and lexapro Continue with bowel regimen
--- NOTE | 2018-09-05 15:57 | PN ---
Progress Note, Physician History of Present Illness: LETHARGIC TODAY OFFERS NO COMPLAINTS TEMPS DOWN AFEBRILE WBC IMPROVED BC (-) SPUTUM C/S NORMAL YOLANDA - Current Medication List Current Medications: Active Medications Acetaminophen (Ofirmev Injection -) 1,000 mg IVPB Q6H PRN PRN Reason: FEVER Albuterol/Ipratropium (Duoneb -) 1 amp NEB [facility]ID [facility] Last Admin: 09/05/18 11:31 Dose: 1 amp Clonazepam (Klonopin -) 0.[address] [facility] Last Admin: 09/04/18 21:45 Dose: 0.5 mg Clonazepam (Klonopin -) 0.25 mg PO DAILY [facility] Last Admin: 09/05/18 10:22 Dose: 0.25 mg Docusate Sodium (Colace Liquid -) 100 mg PO DAILY PRN PRN Reason: CONSTIPATION Doxepin HCl (Sinequan -) [address] [facility] Last Admin: 09/04/18 21:45 Dose: 10 mg Escitalopram Oxalate (Lexapro -) 10 mg PO [facility] Last Admin: 09/05/18 10:22 Dose: 10 mg Heparin Sodium (Porcine) (Heparin -) 5,000 unit SQ BID [facility] Last Admin: 09/05/18 10:22 Dose: 5,000 unit Piperacillin Sod/Tazobactam (Sod 3.375 gm/ Dextrose) 50 mls @ 100 mls/hr IVPB Q8H-[facility]; Protocol Last Admin: 09/05/18 10:20 Dose: 100 mls/hr Senna/Docusate Sodium (Pericolace -) [address] [facility] Stop: 09/05/18 17:23 Last Admin: 09/04/18 21:45 Dose: 2 tablet - Objective Vital Signs: Vital Signs Temperature 98.8 F 09/05/18 06:00 Pulse Rate 70 09/05/18 06:00 Respiratory Rate 20 09/05/18 06:00 Blood Pressure 124/77 09/05/18 06:00 O2 Sat by Pulse Oximetry (%) 99 09/04/18 21:00 Constitutional: Yes: No Distress, Thin Cardiovascular: Yes: Regular Rate and Rhythm, S1, S2 Respiratory: Yes: Diminished Gastrointestinal: Yes: Normal Bowel Sounds, Soft. No: Tenderness Edema: No Labs: CBC, BMP 09/04/18 07:35 09/04/18 07:35 INR, PTT INR 1.31 (0.83-1.09) H 09/04/18 07:35 Assessment/Plan PROBABLE ASP LLL PNEUMONIA R/O SEPSIS SECONDARY TO PNEUMONIA HX ANOXIC BRAIN INJURY AWAIT C/S CONTINUE EMPIRIC ZOSYN ASP PRECAUTIONS
--- NOTE | 2018-09-05 16:05 | PN ---
Progress Note, [employer]INGER - Note Progress Note: Selected Entries 09/04/18 09/04/18 09/04/18 04:00 09:40 16:07 Breakfast Diet Tolerated Supper Temperature 98.7 F 98.3 F 99.2 F 09/04/18 09/04/18 09/04/18 16:55 20:00 22:46 Breakfast Diet Tolerated Supper 100% Temperature 98.2 F 99.2 F 09/05/18 09/05/18 06:00 10:00 Breakfast 50% Diet Tolerated Well Supper Temperature 98.8 F Laboratory Tests 09/03/18 09/04/18 09:39 07:35 WBC 14.4 H 12.3 H MBS reviewed with staff. Dys pureed diet/Honey thick liquid, on tsp/no straws.
[2018-09-05 17:20] LABS: HEMATOCRIT 34.2 % (35.4-49); HEMOGLOBIN 11.4 GM/dL (11.7-16.9); MCH 30.4 pg (25.7-33.7); MCHC 33.3 g/dl (32.0-35.9); MEAN CELL VOLUME 91.2 fl (80-96); MEAN PLT VOLUME 8.8 fl (7.5-11.1); PLATELET COUNT 281 K/MM3 (134-434); RBC 3.75 M/mm3 (4.00-5.60); RDW 13.5 % (11.9-15.9)
[2018-09-05 17:43] LABS: ALBUMIN 2.4 g/dl (3.4-5.0); BILIRUBIN,TOTAL 0.3 mg/dL (0.2-1); BLOOD UREA NITROGEN 15.4 mg/dL (7-18); CALCIUM 8.2 mg/dL (8.5-10.1); CREATININE 0.7 mg/dL (0.55-1.3); MAGNESIUM 2.1 mg/dL (1.8-2.4); POTASSIUM 3.8 mmol/L (3.5-5.1); TOT PROT 5.5 g/dl (6.4-8.2)
[2018-09-05] MEDS ORDERED: PT OWN MED DRAWER 7, Y5N ONE (21:18)
[2018-09-05] MEDS: DOXEPIN HCL 10 MG CAPSULE PO SCH (21:43)
[2018-09-06] MEDS ORDERED: DEXTROSE 5%-WATER - 50 ML IVPB ONE ×3 (01:08→18:04)
[2018-09-06] MEDS ORDERED: PIPERACILLIN/TAZOBACTAM 3.375 GM VIAL IVPB ONE ×3 (01:08→18:04)
[2018-09-06] MEDS: PIPERACILLIN/TAZOB 3.375 GM 3.375 GM in DEXTROSE 5%-WATER - 50 ML IVPB SCH ×3 (01:24→18:08)
[2018-09-06] MEDS: ALBUTEROL SO4 2.5/IPRATROPIUM 0.5 INH SOL 3 ML VIAL.NEB. NEB SCH ×4 (07:30→20:35)
[2018-09-06 09:00] LABS: HEMATOCRIT 35.1 % (35.4-49); HEMOGLOBIN 11.6 GM/dL (11.7-16.9); MCH 30.2 pg (25.7-33.7); MEAN CELL VOLUME 91.3 fl (80-96); MEAN PLT VOLUME 8.8 fl (7.5-11.1); PLATELET COUNT 290 K/MM3 (134-434); RBC 3.84 M/mm3 (4.00-5.60); RDW 13.1 % (11.9-15.9); WHITE BLOOD COUNT 11.3 K/mm3 (4.0-10.0)
--- NOTE | 2018-09-06 09:33 | PN ---
Physical Exam: SUBJECTIVE: Patient seen and examined. Pt nods yes that he is feeling fine. He shakes his no head know when asked if he had any cp, fever, chills, n/v/d OBJECTIVE: Vital Signs Period Temp Pulse Resp BP Sys/Altamirano Pulse Ox Last 24 Hr 97.8 F-98.5 F 65-72 18-20 126-145/68-80 99 Constitutional: Yes: Well Nourished, No Distress, Calm Cardiovascular: Yes: WNL, Regular Rate and Rhythm Respiratory: Yes: On Nasal O2, Rales (at bases). No: Accessory Muscle Use, Cough Gastrointestinal: Yes: WNL, Normal Bowel Sounds, Soft Musculoskeletal: Yes: WNL Extremities: Yes: WNL Edema: No Neurological: Yes: Alert, Oriented (to person only) Laboratory Results - last 24 hr 09/05/18 09/05/18 16:30 16:30 WBC 10.0 RBC 3.75 L Hgb 11.4 L Hct 34.2 L MCV 91.2 MCH 30.4 MCHC 33.3 RDW 13.5 Plt Count 281 MPV 8.8 Sodium 147 H Potassium 3.8 Chloride 112 H Carbon Dioxide 28 Anion Gap 6 L BUN 15.4 Creatinine 0.7 Est GFR (CKD-EPI)AfAm 113.18 Est GFR (CKD-EPI)NonAf 97.65 Random Glucose 79 Calcium 8.2 L Magnesium 2.1 Total Bilirubin 0.3 AST 17 ALT 17 Alkaline Phosphatase 105 Total Protein 5.5 L Albumin 2.4 L Active Medications Generic Name Dose Route Start Last Admin Trade Name Freq PRN Reason Stop Dose Admin Acetaminophen 1,000 mg 09/03/18 14:24 Ofirmev Injection - IVPB Q6H PRN FEVER Albuterol/Ipratropium 1 amp 09/04/18 11:10 09/06/18 07:30 Duoneb - NEB 1 amp RQID [facility] Administration Clonazepam 0.5 mg 09/03/18 22:00 09/05/18 21:44 Klonopin - PO 0.5 mg HS [facility] Administration Clonazepam 0.25 mg 09/04/18 10:00 09/05/18 10:22 Klonopin - PO 0.25 mg DAILY [facility] Administration Docusate Sodium 100 mg 09/05/18 10:00 Colace Liquid - PO DAILY PRN CONSTIPATION Doxepin HCl 10 mg 09/03/18 22:00 09/05/18 21:43 Sinequan - PO 10 mg HS [facility] Administration Escitalopram Oxalate 10 mg 09/04/18 10:00 09/05/18 10:22 Lexapro - PO 10 mg DAILY [facility] Administration Heparin Sodium (Porcine) 5,000 unit 09/03/18 22:00 09/05/18 21:43 Heparin - SQ 5,000 unit BID [facility] Administration Piperacillin Sod/Tazobactam 50 mls @ 100 mls/hr 09/04/18 18:00 09/06/18 01:24 Sod 3.375 gm/ Dextrose IVPB 100 mls/hr Q8H-IV [facility] Administration Protocol ASSESSMENT Acute Hypoxic Respiratory Failure/Sepsis secondary to aspiration LLL pneumonia COPD Dementia h/o TBI Major Depressive Disorder Chronic Constipation Plan Continue abx, on zosyn Inhaled bronchodilators Aspiration precautions Legionella/strep neg, blood and sputum cx neg Supplemental 02 as needed Hypernatremia -resolved Speech/Swallow eval noted, barium swallow recs noted Mood stable, continue with clonazepam, doxepin and lexapro Continue with bowel regimen Visit type - Emergency Visit Emergency Visit: Yes ED Registration Date: 09/03/18 Care time: The patient presented to the Emergency Department on the above date and was hospitalized for further evaluation of their emergent condition. - New Patient This patient is new to me today: Yes Date on this admission: 09/06/18 - Critical Care Critical Care patient: No
[2018-09-06 09:37] LABS: ALBUMIN 2.4 g/dl (3.4-5.0); BILIRUBIN,TOTAL 0.3 mg/dL (0.2-1); BLOOD UREA NITROGEN 12.2 mg/dL (7-18); CALCIUM 8.4 mg/dL (8.5-10.1); CREATININE 0.6 mg/dL (0.55-1.3); MAGNESIUM 2.1 mg/dL (1.8-2.4); POTASSIUM 3.8 mmol/L (3.5-5.1); TOT PROT 5.6 g/dl (6.4-8.2)
[2018-09-06] MEDS ORDERED: PT OWN MED DRAWER 7, Y5N ONE ×2 (09:50→22:21)
[2018-09-06] MEDS: HEPARIN NA (PORCINE) 5,000 UNITS/ML 1ML VIAL SQ SCH ×2 (09:59→22:21)
[2018-09-06] MEDS: clonazePAM 0.5 MG TABLET PO SCH ×2 (10:00→22:21)
[2018-09-06] MEDS: ESCITALOPRAM OXALATE 10 MG TABLET (FP) PO SCH (10:00)
[2018-09-06] MEDS ORDERED: SENNOSIDES 8.6MG TABLET (FP) PO PRN (11:29)
[2018-09-06] MEDS ORDERED: ACETAMINOPHEN 325 MG TABLET (FP) PO PRN (11:55)
--- NOTE | 2018-09-06 15:55 | PN ---
Progress Note (short form) - Note Progress Note: PULMONARY Denies shortness of breath, cough. No fevers recorded. Vital Signs Period Temp Pulse Resp BP Sys/Altamirano Pulse Ox Last 24 Hr 97.6 F-98.5 F 65-89 18-20 106-145/70-80 99 Gen: NAD at rest Heart: RRR Lung: decreased breath sounds at the bases Abd: soft, nontender Ext: no edema CBC, BMP 09/06/18 08:30 09/06/18 08:30 Active Medications Acetaminophen (Tylenol -) 650 mg PO Q6H PRN PRN Reason: PAIN Albuterol/Ipratropium (Duoneb -) 1 amp NEB RQID [facility] Last Admin: 09/06/18 11:54 Dose: Not Given Clonazepam (Klonopin -) 0.5 mg PO HS [facility] Last Admin: 09/05/18 21:44 Dose: 0.5 mg Clonazepam (Klonopin -) 0.25 mg PO DAILY [facility] Last Admin: 09/06/18 10:00 Dose: 0.25 mg Doxepin HCl (Sinequan -) 10 mg PO HS [facility] Last Admin: 09/05/18 21:43 Dose: 10 mg Escitalopram Oxalate (Lexapro -) 10 mg PO DAILY [facility] Last Admin: 09/06/18 10:00 Dose: 10 mg Heparin Sodium (Porcine) (Heparin -) 5,000 unit SQ BID [facility] Last Admin: 09/06/18 09:59 Dose: 5,000 unit Piperacillin Sod/Tazobactam (Sod 3.375 gm/ Dextrose) 50 mls @ 100 mls/hr IVPB Q8H-IV [facility]; Protocol Last Admin: 09/06/18 10:00 Dose: 100 mls/hr Senna (Senna -) 2 tab PO HS PRN PRN Reason: CONSTIPATION A/P Pneumonia likely Aspiration Sepsis COPD Dementia h/o TBI - continue antibiotics per ID - f/u cultures - O2 to keep SpO2 >90% - inhaled bronchodilators as needed - aspiration precautions - DVT prophylaxis Problem List - Problems (1) Pneumonia Code(s): J18.9 - PNEUMONIA, UNSPECIFIED ORGANISM (2) Sepsis Code(s): A41.9 - SEPSIS, UNSPECIFIED ORGANISM
--- NOTE | 2018-09-06 15:56 | PN ---
Progress Note, Physician History of Present Illness: OOB IN CHAIR + COUGH NOTED BEATHING NON-LABORED OFFERS NO COMPLAINTS TEMPS DOWN AFEBRILE WBC IMPROVED BC (-) SPUTUM C/S NORMAL YOLANDA - Current Medication List Current Medications: Active Medications Acetaminophen (Tylenol -) 650 mg PO Q6H PRN PRN Reason: PAIN Albuterol/Ipratropium (Duoneb -) 1 amp NEB RQID [facility] Last Admin: 09/06/18 11:54 Dose: Not Given Clonazepam (Klonopin -) 0.5 mg PO HS [facility] Last Admin: 09/05/18 21:44 Dose: 0.5 mg Clonazepam (Klonopin -) 0.25 mg PO DAILY [facility] Last Admin: 09/06/18 10:00 Dose: 0.25 mg Doxepin HCl (Sinequan -) 10 mg PO HS [facility] Last Admin: 09/05/18 21:43 Dose: 10 mg Escitalopram Oxalate (Lexapro -) 10 mg PO DAILY [facility] Last Admin: 09/06/18 10:00 Dose: 10 mg Heparin Sodium (Porcine) (Heparin -) 5,000 unit SQ BID [facility] Last Admin: 09/06/18 09:59 Dose: 5,000 unit Piperacillin Sod/Tazobactam (Sod 3.375 gm/ Dextrose) 50 mls @ 100 mls/hr IVPB Q8H-IV [facility]; Protocol Last Admin: 09/06/18 10:00 Dose: 100 mls/hr Senna (Senna -) 2 tab PO HS PRN PRN Reason: CONSTIPATION - Objective Vital Signs: Vital Signs Temperature 97.6 F 09/06/18 14:36 Pulse Rate 89 09/06/18 14:36 Respiratory Rate 20 09/06/18 14:36 Blood Pressure 106/73 09/06/18 14:36 O2 Sat by Pulse Oximetry (%) 99 09/05/18 21:00 Constitutional: Yes: No Distress Eyes: Yes: Conjunctiva Clear Cardiovascular: Yes: Regular Rate and Rhythm, S1, S2 Respiratory: Yes: CTA Bilaterally Gastrointestinal: Yes: Normal Bowel Sounds, Soft. No: Tenderness Edema: No Labs: CBC, BMP 09/06/18 08:30 09/06/18 08:30 INR, PTT INR 1.31 (0.83-1.09) H 09/04/18 07:35 Assessment/Plan PROBABLE ASP LLL PNEUMONIA R/O SEPSIS SECONDARY TO PNEUMONIA HX ANOXIC BRAIN INJURY CONTINUE EMPIRIC ZOSYN ASP PRECAUTIONS
[2018-09-06] MEDS: DOXEPIN HCL 10 MG CAPSULE PO SCH (22:21)
[2018-09-07] MEDS ORDERED: PIPERACILLIN/TAZOBACTAM 3.375 GM VIAL IVPB ONE ×3 (01:17→17:41)
[2018-09-07] MEDS ORDERED: DEXTROSE 5%-WATER - 50 ML IVPB ONE ×3 (01:17→17:44)
[2018-09-07] MEDS: PIPERACILLIN/TAZOB 3.375 GM 3.375 GM in DEXTROSE 5%-WATER - 50 ML IVPB SCH ×3 (01:38→17:55)
[2018-09-07] MEDS: ALBUTEROL SO4 2.5/IPRATROPIUM 0.5 INH SOL 3 ML VIAL.NEB. NEB SCH ×4 (07:30→20:53)
[2018-09-07] MEDS: HEPARIN NA (PORCINE) 5,000 UNITS/ML 1ML VIAL SQ SCH ×2 (11:44→22:33)
[2018-09-07] MEDS: clonazePAM 0.5 MG TABLET PO SCH ×2 (11:45→22:33)
[2018-09-07] MEDS: ESCITALOPRAM OXALATE 10 MG TABLET (FP) PO SCH (11:45)
--- NOTE | 2018-09-07 12:10 | PN ---
Progress Note, ENAMEL CRACKER - Note Progress Note: Selected Entries 09/04/18 09/04/18 09/04/18 04:00 09:40 16:07 Breakfast Diet Tolerated Supper Temperature 98.7 F 98.3 F 99.2 F 09/04/18 09/04/18 09/04/18 16:55 20:00 22:46 Breakfast Diet Tolerated Supper 100% Temperature 98.2 F 99.2 F 09/05/18 09/05/18 06:00 10:00 Breakfast 50% Diet Tolerated Well Supper Temperature 98.8 F Laboratory Tests 09/03/18 09/04/18 09:39 07:35 WBC 14.4 H 12.3 H Selected Entries 09/06/18 09/06/18 09/06/18 04:52 12:45 14:36 Breakfast 50% Supper Temperature 98.5 F 97.6 F 09/06/18 09/06/18 09/07/18 20:53 22:00 06:00 Breakfast Supper 25% Temperature 97.8 F 97.9 F 09/07/18 11:59 Breakfast 50% Supper Temperature MBS reviewed with staff. Dys pureed diet/Honey thick liquid, on tsp/no straws. Reported to be tolerating diet without overt signs of difficulty.
[2018-09-07 12:52] LABS: HEMATOCRIT 33.7 % (35.4-49); HEMOGLOBIN 11.2 GM/dL (11.7-16.9); MCHC 33.4 g/dl (32.0-35.9); MEAN PLT VOLUME 8.4 fl (7.5-11.1); PLATELET COUNT 297 K/MM3 (134-434); RBC 3.74 M/mm3 (4.00-5.60); RDW 13.2 % (11.9-15.9); WHITE BLOOD COUNT 6.5 K/mm3 (4.0-10.0)
[2018-09-07 13:26] LABS: ALBUMIN 2.4 g/dl (3.4-5.0); BILIRUBIN,TOTAL 0.2 mg/dL (0.2-1); BLOOD UREA NITROGEN 13.3 mg/dL (7-18); CALCIUM 8.4 mg/dL (8.5-10.1); CREATININE 0.6 mg/dL (0.55-1.3); MAGNESIUM 2.2 mg/dL (1.8-2.4); POTASSIUM 3.5 mmol/L (3.5-5.1); TOT PROT 5.4 g/dl (6.4-8.2)
--- NOTE | 2018-09-07 13:33 | PN ---
Progress Note (short form) - Note Progress Note: PULMONARY Denies shortness of breath, cough. No fevers recorded. Eating lunch. Vital Signs Period Temp Pulse Resp BP Sys/Altamirano Pulse Ox Last 24 Hr 97.6 F-97.9 F 59-89 16-20 106-138/69-73 95 Gen: NAD at rest Heart: RRR Lung: decreased breath sounds at the bases Abd: soft, nontender Ext: no edema CBC, BMP 09/07/18 12:15 09/07/18 12:15 Active Medications Acetaminophen (Tylenol -) 650 mg PO Q6H PRN PRN Reason: PAIN Albuterol/Ipratropium (Duoneb -) 1 amp NEB RQID [facility] Last Admin: 09/07/18 11:30 Dose: 1 amp Clonazepam (Klonopin -) 0.5 mg PO HS [facility] Last Admin: 09/06/18 22:21 Dose: 0.5 mg Clonazepam (Klonopin -) 0.25 mg PO DAILY [facility] Last Admin: 09/07/18 11:45 Dose: 0.25 mg Doxepin HCl (Sinequan -) 10 mg PO HS [facility] Last Admin: 09/06/18 22:21 Dose: 10 mg Escitalopram Oxalate (Lexapro -) 10 mg PO DAILY [facility] Last Admin: 09/07/18 11:45 Dose: 10 mg Heparin Sodium (Porcine) (Heparin -) 5,000 unit SQ BID [facility] Last Admin: 09/07/18 11:44 Dose: 5,000 unit Piperacillin Sod/Tazobactam (Sod 3.375 gm/ Dextrose) 50 mls @ 100 mls/hr IVPB Q8H-IV [facility]; Protocol Last Admin: 09/07/18 11:45 Dose: 100 mls/hr Senna (Senna -) 2 tab PO HS PRN PRN Reason: CONSTIPATION A/P Pneumonia likely Aspiration Sepsis COPD Dementia h/o TBI - continue antibiotics per ID - O2 to keep SpO2 >90% - inhaled bronchodilators as needed - aspiration precautions - DVT prophylaxis Problem List - Problems (1) Pneumonia Code(s): J18.9 - PNEUMONIA, UNSPECIFIED ORGANISM (2) Sepsis Code(s): A41.9 - SEPSIS, UNSPECIFIED ORGANISM
--- NOTE | 2018-09-07 14:30 | PN ---
Progress Note, Physician Chief Complaint: low oxygen History of Present Illness: seen and examined no acute events overnight. feeling better - Current Medication List Current Medications: Active Medications Acetaminophen (Tylenol -) 650 mg PO Q6H PRN PRN Reason: PAIN Albuterol/Ipratropium (Duoneb -) 1 amp NEB RQID [facility] Last Admin: 09/07/18 11:30 Dose: 1 amp Clonazepam (Klonopin -) 0.5 mg PO HS [facility] Last Admin: 09/06/18 22:21 Dose: 0.5 mg Clonazepam (Klonopin -) 0.25 mg PO DAILY [facility] Last Admin: 09/07/18 11:45 Dose: 0.25 mg Doxepin HCl (Sinequan -) 10 mg PO HS [facility] Last Admin: 09/06/18 22:21 Dose: 10 mg Escitalopram Oxalate (Lexapro -) 10 mg PO DAILY [facility] Last Admin: 09/07/18 11:45 Dose: 10 mg Heparin Sodium (Porcine) (Heparin -) 5,000 unit SQ BID [facility] Last Admin: 09/07/18 11:44 Dose: 5,000 unit Piperacillin Sod/Tazobactam (Sod 3.375 gm/ Dextrose) 50 mls @ 100 mls/hr IVPB Q8H-IV [facility]; Protocol Last Admin: 09/07/18 11:45 Dose: 100 mls/hr Senna (Senna -) 2 tab PO HS PRN PRN Reason: CONSTIPATION - Objective Vital Signs: Vital Signs Temperature 98.2 F 09/07/18 14:25 Pulse Rate 57 L 09/07/18 14:25 Respiratory Rate 18 09/07/18 14:25 Blood Pressure 119/71 09/07/18 14:25 O2 Sat by Pulse Oximetry (%) 95 09/06/18 21:00 Constitutional: Yes: Well Nourished, No Distress, Calm Cardiovascular: Yes: WNL, Regular Rate and Rhythm Respiratory: Yes: Diminished (at bases), On Nasal O2. No: Accessory Muscle Use , Orthopnea, Rales, Rhonchi, SOB Gastrointestinal: Yes: WNL, Normal Bowel Sounds, Soft Musculoskeletal: Yes: WNL Extremities: Yes: WNL Labs: CBC, BMP 09/07/18 12:15 09/07/18 12:15 INR, PTT INR 1.31 (0.83-1.09) H 09/04/18 07:35 Problem List - Problems (1) Aspiration pneumonia due to food (regurgitated) Code(s): J69.0 - PNEUMONITIS DUE TO INHALATION OF FOOD AND VOMIT Qualifiers: Laterality: left Lung location: lower lobe of lung Qualified Code(s): J69.0 - Pneumonitis due to inhalation of food and vomit (2) History of traumatic brain injury Code(s): Z87.820 - PERSONAL HISTORY OF TRAUMATIC BRAIN INJURY (3) Major depressive disorder Code(s): F32.9 - MAJOR DEPRESSIVE DISORDER, SINGLE EPISODE, UNSPECIFIED (4) Requires aspiration precautions Code(s): Z91.89 - OTH PERSONAL RISK FACTORS, NOT ELSEWHERE CLASSIFIED (5) Restlessness and agitation Code(s): R45.1 - RESTLESSNESS AND AGITATION (6) Sepsis Code(s): A41.9 - SEPSIS, UNSPECIFIED ORGANISM (7) Hypernatremia Code(s): E87.0 - HYPEROSMOLALITY AND HYPERNATREMIA Assessment/Plan Assessment: Acute Hypoxic Respiratory Failure/Sepsis secondary to aspiration LLL pneumonia COPD Dementia h/o TBI Major Depressive Disorder Chronic Constipation Plan: Continue Zosyn for HCAP, may deescalate tomorrow Inhaled bronchodilators Legionella/strep neg, blood and sputum cx neg Supplemental 02 as needed Hypernatremia resolved ID/pulm eval appreciated Aspiration precautions Mood stable, continue with clonazepam, doxepin and lexapro Continue with bowel regimen
[2018-09-07] MEDS ORDERED: PT OWN MED DRAWER 7, Y5N ONE (22:24)
[2018-09-07] MEDS: DOXEPIN HCL 10 MG CAPSULE PO SCH (22:33)
[2018-09-08] MEDS ORDERED: PIPERACILLIN/TAZOBACTAM 3.375 GM VIAL IVPB ONE ×3 (01:08→16:52)
[2018-09-08] MEDS ORDERED: DEXTROSE 5%-WATER - 50 ML IVPB ONE ×3 (01:09→16:52)
[2018-09-08] MEDS: PIPERACILLIN/TAZOB 3.375 GM 3.375 GM in DEXTROSE 5%-WATER - 50 ML IVPB SCH ×3 (01:27→18:06)
[2018-09-08] MEDS: ALBUTEROL SO4 2.5/IPRATROPIUM 0.5 INH SOL 3 ML VIAL.NEB. NEB SCH ×4 (07:35→20:37)
[2018-09-08 09:25] LABS: HEMATOCRIT 36.6 % (35.4-49); HEMOGLOBIN 12.3 GM/dL (11.7-16.9); MCH 30.3 pg (25.7-33.7); MCHC 33.7 g/dl (32.0-35.9); MEAN PLT VOLUME 8.7 fl (7.5-11.1); PLATELET COUNT 333 K/MM3 (134-434); RBC 4.06 M/mm3 (4.00-5.60); RDW 13.1 % (11.9-15.9)
[2018-09-08] MEDS: ESCITALOPRAM OXALATE 10 MG TABLET (FP) PO SCH (09:47)
[2018-09-08 09:48] LABS: ALBUMIN 2.7 g/dl (3.4-5.0); BILIRUBIN,TOTAL 0.2 mg/dL (0.2-1); BLOOD UREA NITROGEN 12.2 mg/dL (7-18); CALCIUM 8.7 mg/dL (8.5-10.1); CREATININE 0.6 mg/dL (0.55-1.3); MAGNESIUM 2.3 mg/dL (1.8-2.4); POTASSIUM 3.8 mmol/L (3.5-5.1)
[2018-09-08] MEDS: HEPARIN NA (PORCINE) 5,000 UNITS/ML 1ML VIAL SQ SCH ×2 (09:48→22:08)
[2018-09-08] MEDS: clonazePAM 0.5 MG TABLET PO SCH ×2 (09:48→22:07)
--- NOTE | 2018-09-08 12:50 | PN ---
Progress Note, END STAPLER - Note Progress Note: Selected Entries 09/04/18 09/04/18 09/04/18 04:00 09:40 16:07 Breakfast Diet Tolerated Supper Temperature 98.7 F 98.3 F 99.2 F 09/04/18 09/04/18 09/04/18 16:55 20:00 22:46 Breakfast Diet Tolerated Supper 100% Temperature 98.2 F 99.2 F 09/05/18 09/05/18 06:00 10:00 Breakfast 50% Diet Tolerated Well Supper Temperature 98.8 F Laboratory Tests 09/03/18 09/04/18 09:39 07:35 WBC 14.4 H 12.3 H Selected Entries 09/06/18 09/06/18 09/06/18 04:52 12:45 14:36 Breakfast 50% Supper Temperature 98.5 F 97.6 F 09/06/18 09/06/18 09/07/18 20:53 22:00 06:00 Breakfast Supper 25% Temperature 97.8 F 97.9 F 09/07/18 11:59 Breakfast 50% Supper Temperature Selected Entries 09/08/18 09/08/18 05:00 12:23 Breakfast 75% Lunch 75% Temperature 97.6 F Laboratory Tests 09/08/18 08:40 WBC 10.0 Appetite improving. Dys pureed diet/Honey thick liquid, on tsp/no straws. Said to coughing at times, insisting on feeding himself, drinking from a cup. Aspiration possible. Suggest spoon for liquids if pt will allow. Family can order Provale cup on line, This is a sippy cup that will allow independent drinking, but only dispenses one sip at a time. Reviewed with OUTDOOR LANDSCAPE ARCHITECT/primary nurse.
--- NOTE | 2018-09-08 15:35 | PN ---
Progress Note, Physician Chief Complaint: no overnight agitation or events reported. pt laying comfortably in bed. respirations easy and unlabored. 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 Patient is a resident of [facility] for rehabilitation. He presents to the ED on 09/03/2018 via EMS from [facility] with hypoxia and coughing up sputum and pieces of food. Patient is unable to provide a history secondary to dementia and TBI, he is able to answer some questions. In the ED son reported that patient was receiving an incorrect dose of Zyprexa at the [facility] and noted his father to be more lethargic. Patient reportedly was on Zyprexa 5mg BID, but was receiving Zyprexa 10mg BID instead. He is being admitted for sepsis likely secondary to aspiration pneumonia and has been started on Zosyn. - Current Medication List Current Medications: Active Medications Acetaminophen (Tylenol -) 650 mg PO Q6H PRN PRN Reason: PAIN Albuterol/Ipratropium (Duoneb -) 1 amp NEB RQID [facility] Last Admin: 09/08/18 11:35 Dose: 1 amp Clonazepam (Klonopin -) 0.5 mg PO [facility] Last Admin: 09/07/18 22:33 Dose: 0.5 mg Clonazepam (Klonopin -) 0.25 mg PO DAILY [facility] Last Admin: 09/08/18 09:48 Dose: 0.25 mg Doxepin HCl (Sinequan -) 10 mg PO [facility] Last Admin: 09/07/18 22:33 Dose: 10 mg Escitalopram Oxalate (Lexapro -) 10 mg PO DAILY [facility] Last Admin: 09/08/18 09:47 Dose: 10 mg Heparin Sodium (Porcine) (Heparin -) 5,000 unit SQ BID [facility] Last Admin: 09/08/18 09:48 Dose: 5,000 unit Piperacillin Sod/Tazobactam (Sod 3.375 gm/ Dextrose) 50 mls @ 100 mls/hr IVPB Q8H-IV [facility]; Protocol Last Admin: 09/08/18 09:48 Dose: 100 mls/hr Senna (Senna -) 2 tab PO HS PRN PRN Reason: CONSTIPATION - Objective Vital Signs: Vital Signs Temperature 97.6 F 09/08/18 13:56 Pulse Rate 75 09/08/18 13:56 Respiratory Rate 18 09/08/18 13:56 Blood Pressure 112/64 09/08/18 13:56 O2 Sat by Pulse Oximetry (%) 97 09/08/18 09:00 Constitutional: Yes: Well Nourished, No Distress, Calm, Thin Eyes: Yes: WNL HENT: Yes: WNL Neck: Yes: Supple Cardiovascular: Yes: Regular Rate and Rhythm Respiratory: Yes: Cough, Diminished, Other (left upper lobe with rhonchi. tolerating room air.) Gastrointestinal: Yes: Normal Bowel Sounds, Soft ...Rectal Exam: Yes: Deferred Genitourinary: Yes: WNL Extremities: Yes: WNL Edema: No Integumentary: Yes: WNL Neurological: Yes: Alert, Oriented, Confusion ...Motor Strength: WNL Psychiatric: Yes: Alert, Oriented Labs: CBC, BMP 09/08/18 08:40 09/08/18 08:45 INR, PTT INR 1.31 (0.83-1.09) H 09/04/18 07:35 Problem List - Problems (1) Sepsis Assessment/Plan: Patient presents to the ED with acute hypoxia, non productive cough, worsening AMS and leukocytosis Chest xray shows left lower lobe infiltrate. He has been on Zosyn since admission and his mentation has improved. He was admitted for sepsis likely secondary to acute aspiration pneumonia. Sepsis resolved. Determination of length of antibiotics to be determined by ID. Code(s): A41.9 - SEPSIS, UNSPECIFIED ORGANISM (2) Aspiration pneumonia due to food (regurgitated) Assessment/Plan: continue aspiration precautions -Patient to sit up at all times with meals -feed small amounts slowly -do not lay flat after meals -do not eat or drink with a straw -daily mouth care -per mbs: honey thick liquids on teaspoon only, have patient swallow hard twice with each teaspoon, crush meds on honey thick liq. speech and swallow following, recommendations noted and appreciated. -per speech and swallow, patient family can purchase Provale cup on line to help prevent aspiration Code(s): J69.0 - PNEUMONITIS DUE TO INHALATION OF FOOD AND VOMIT Qualifiers: Laterality: left Lung location: lower lobe of lung Qualified Code(s): J69.0 - Pneumonitis due to inhalation of food and vomit (3) Major depressive disorder Assessment/Plan: continue Clonazepam scheduled and lexapro hold Zyprexa Code(s): F32.9 - MAJOR DEPRESSIVE DISORDER, SINGLE EPISODE, UNSPECIFIED (4) Traumatic brain injury of unknown intent Assessment/Plan: Monitor mental status and agitation Code(s): S06.9X9A - UNSP INTRACRANIAL INJURY W LOC OF UNSP DURATION, INIT (5) History of chronic constipation Assessment/Plan: colace liquid, bowel regimen Code(s): Z87.19 - PERSONAL HISTORY OF OTHER DISEASES OF THE DIGESTIVE SYSTEM (6) Requires aspiration precautions Assessment/Plan: aspiration precautions as noted above Code(s): Z91.89 - OTH PERSONAL RISK FACTORS, NOT ELSEWHERE CLASSIFIED (7) History of traumatic brain injury Assessment/Plan: monitor mental status Code(s): Z87.820 - PERSONAL HISTORY OF TRAUMATIC BRAIN INJURY (8) Restlessness and agitation Assessment/Plan: On scheduled Clonozepam Code(s): R45.1 - RESTLESSNESS AND AGITATION (9) Prophylactic measure Assessment/Plan: fen monitor electrolyltes honey thick liquids, aspiration precautions, dysphagia pureed diet. prophy [facility] Code(s): Z29.9 - ENCOUNTER FOR PROPHYLACTIC MEASURES, UNSPECIFIED Visit type - Emergency Visit Emergency Visit: Yes ED Registration Date: 09/03/18 Care time: The patient presented to the Emergency Department on the above date and was hospitalized for further evaluation of their emergent condition. - New Patient This patient is new to me today: No - Critical Care Critical Care patient: No - Discharge Referral Referred to [facility] Med P.C.: No
--- NOTE | 2018-09-08 15:41 | PN ---
Progress Note (short form) - Note Progress Note: NAD. Denies shortness of breath or cough. No fevers recorded. No acute events overnight. Intake & Output 09/05/18 09/06/18 09/07/18 09/08/18 23:59 23:59 23:59 23:59 Intake Total 1350 690 450 580 Balance 1350 690 450 580 Weight 134 lb 134 lb 11.2 oz 134 lb 14.4 oz 133 lb Last Vital Signs Temp Pulse Resp BP Pulse Ox 97.6 F 75 18 112/64 97 09/08/18 13:56 09/08/18 13:56 09/08/18 13:56 09/08/18 13:56 09/08/18 09:00 Active Medications Acetaminophen (Tylenol -) 650 mg PO Q6H PRN PRN Reason: PAIN Albuterol/Ipratropium (Duoneb -) 1 amp NEB RQID [facility] BEDS AT [facility] Last Admin: 09/08/18 11:35 Dose: 1 amp Clonazepam (Klonopin -) 0.5 mg PO HS [facility]S AT [facility] Last Admin: 09/07/18 22:33 Dose: 0.5 mg Clonazepam (Klonopin -) 0.25 mg PO DAILY [facility] 234 B[facility]S AT [facility] Last Admin: 09/08/18 09:48 Dose: 0.25 mg Doxepin HCl (Sinequan -) 10 mg PO HS [facility]S [facility] Last Admin: 09/07/18 22:33 Dose: 10 mg Escitalopram Oxalate (Lexapro -) 10 mg PO DAILY [facility]S [facility] Last Admin: 09/08/18 09:47 Dose: 10 mg Heparin Sodium (Porcine) (Heparin -) 5,000 unit SQ BID [facility]S [facility] Last Admin: 09/08/18 09:48 Dose: 5,000 unit Piperacillin Sod/Tazobactam (Sod 3.375 gm/ Dextrose) 50 mls @ 100 mls/hr IVPB Q8H-IV [facility]; Protocol Last Admin: 09/08/18 09:48 Dose: 100 mls/hr Senna (Senna -) 2 tab PO HS PRN PRN Reason: CONSTIPATION Gen: NAD at rest Heart: RRR Lung: decreased breath sounds at the bases Abd: soft, nontender Ext: no edema Laboratory Results - last 24 hr 09/05/18 09/08/18 09/08/18 16:53 08:40 08:45 WBC 10.0 RBC 4.06 Hgb 12.3 Hct 36.6 MCV 90.0 MCH 30.3 MCHC 33.7 RDW 13.1 Plt Count 333 MPV 8.7 Sodium 142 Potassium 3.8 Chloride 108 H Carbon Dioxide 31 Anion Gap 4 L BUN 12.2 Creatinine 0.6 Est GFR (CKD-EPI)AfAm 120.58 Est GFR (CKD-EPI)NonAf 104.04 POC Glucometer 79 Random Glucose 78 Calcium 8.7 Magnesium 2.3 Total Bilirubin 0.2 AST 14 L ALT 16 Alkaline Phosphatase 104 Total Protein 6.0 L Albumin 2.7 L Problem List - Problems (1) Pneumonia Code(s): J18.9 - PNEUMONIA, UNSPECIFIED ORGANISM (2) Sepsis Code(s): A41.9 - SEPSIS, UNSPECIFIED ORGANISM A/P Pneumonia likely Aspiration Sepsis COPD Dementia h/o TBI - ABX per ID: Currently on Zosyn: Consider de-escalation - O2 to keep SpO2 >90% - inhaled bronchodilators as needed - aspiration precautions - DVT prophylaxis Dr Stone
[2018-09-08 16:29] VITALS: BMI 20.8
[2018-09-08] MEDS ORDERED: PT OWN MED DRAWER 7, Y5N ONE (21:17)
[2018-09-08] MEDS: DOXEPIN HCL 10 MG CAPSULE PO SCH (22:03)
[2018-09-09] MEDS ORDERED: PIPERACILLIN/TAZOBACTAM 3.375 GM VIAL IVPB ONE ×3 (01:35→18:03)
[2018-09-09] MEDS ORDERED: DEXTROSE 5%-WATER - 50 ML IVPB ONE ×3 (01:35→18:03)
[2018-09-09] MEDS: PIPERACILLIN/TAZOB 3.375 GM 3.375 GM in DEXTROSE 5%-WATER - 50 ML IVPB SCH ×3 (01:53→18:18)
[2018-09-09] MEDS: ALBUTEROL SO4 2.5/IPRATROPIUM 0.5 INH SOL 3 ML VIAL.NEB. NEB SCH ×4 (07:47→19:59)
--- NOTE | 2018-09-09 08:33 | PN ---
Physical Exam: SUBJECTIVE: Patient seen and examined. No signs and symptoms of distressed. Pt denies CP, SOB, N/v/d, or any discomfort OBJECTIVE: Vital Signs Period Temp Pulse Resp BP Sys/Altamirano Pulse Ox Last 24 Hr 97.5 F-98 F 60-85 18-20 112-125/51-68 97 Constitutional: Yes: Well Nourished, No Distress, Calm, Thin Eyes: Yes: WNL HENT: Yes: WNL Neck: Yes: Supple Cardiovascular: Yes: Regular Rate and Rhythm Respiratory: Yes: Cough, Diminished Bilateral at the bases , Other (left upper lobe with rhonchi. tolerating room air.) Gastrointestinal: Yes: Normal Bowel Sounds, Soft ...Rectal Exam: Yes: Deferred Genitourinary: Yes: WNL Extremities: Yes: WNL Edema: No Integumentary: Yes: WNL Neurological: Yes: Alert, Oriented to person, Confusion ...Motor Strength: WNL Psychiatric: Yes: Alert, Oriented Laboratory Results - last 24 hr 09/05/18 09/08/18 09/08/18 16:53 08:40 08:45 WBC 10.0 RBC 4.06 Hgb 12.3 Hct 36.6 MCV 90.0 MCH 30.3 MCHC 33.7 RDW 13.1 Plt Count 333 MPV 8.7 Sodium 142 Potassium 3.8 Chloride 108 H Carbon Dioxide 31 Anion Gap 4 L BUN 12.2 Creatinine 0.6 Est GFR (CKD-EPI)AfAm 120.58 Est GFR (CKD-EPI)NonAf 104.04 POC Glucometer 79 Random Glucose 78 Calcium 8.7 Magnesium 2.3 Total Bilirubin 0.2 AST 14 L ALT 16 Alkaline Phosphatase 104 Total Protein 6.0 L Albumin 2.7 L Active Medications Generic Name Dose Route Start Last Admin Trade Name Freq PRN Reason Stop Dose Admin Acetaminophen 650 mg 09/06/18 11:55 Tylenol - PO Q6H PRN PAIN Albuterol/Ipratropium 1 amp 09/04/18 11:10 09/09/18 07:47 Duoneb - NEB 1 amp RQID [facility] Administration Clonazepam 0.5 mg 09/03/18 22:00 09/08/18 22:07 Klonopin - PO 0.5 mg HS [facility] Administration Clonazepam 0.25 mg 09/04/18 10:00 09/08/18 09:48 Klonopin - PO 0.25 mg DAILY [facility] Administration Doxepin HCl 10 mg 09/03/18 22:00 09/08/18 22:03 Sinequan - PO 10 mg HS [facility] Administration Escitalopram Oxalate 10 mg 09/04/18 10:00 09/08/18 09:47 Lexapro - PO 10 mg DAILY [facility] Administration Heparin Sodium (Porcine) 5,000 unit 09/03/18 22:00 09/08/18 22:08 Heparin - SQ 5,000 unit BID [facility] Administration Piperacillin Sod/Tazobactam 50 mls @ 100 mls/hr 09/04/18 18:00 09/09/18 01:53 Sod 3.375 gm/ Dextrose IVPB 100 mls/hr Q8H-IV [facility] Administration Protocol Senna 2 tab 09/06/18 11:29 Senna - PO HS PRN CONSTIPATION ASSESSMENT/PLAN: (1) Sepsis Assessment/Plan: Patient presents to the ED with acute hypoxia, non productive cough, worsening AMS and leukocytosis Chest xray shows left lower lobe infiltrate. He has been on Zosyn since admission and his mentation has improved. He was admitted for sepsis likely secondary to acute aspiration pneumonia. Sepsis resolved. Determination of length of antibiotics to be determined by ID. Code(s): A41.9 - SEPSIS, UNSPECIFIED ORGANISM (2) Aspiration pneumonia due to food (regurgitated) Assessment/Plan: continue aspiration precautions -Patient to sit up at all times with meals -feed small amounts slowly -do not lay flat after meals -do not eat or drink with a straw -daily mouth care -per mbs: honey thick liquids on teaspoon only, have patient swallow hard twice with each teaspoon, crush meds on honey thick liq. speech and swallow following, recommendations noted and appreciated. -per speech and swallow, patient family can purchase Provale cup on line to help prevent aspiration Code(s): J69.0 - PNEUMONITIS DUE TO INHALATION OF FOOD AND VOMIT Qualifiers: Laterality: left Lung location: lower lobe of lung Qualified Code(s): J69.0 - Pneumonitis due to inhalation of food and vomit (3) Major depressive disorder Assessment/Plan: continue Clonazepam scheduled and lexapro hold Zyprexa Code(s): F32.9 - MAJOR DEPRESSIVE DISORDER, SINGLE EPISODE, UNSPECIFIED (4) Traumatic brain injury of unknown intent Assessment/Plan: Monitor mental status and agitation Code(s): S06.9X9A - UNSP INTRACRANIAL INJURY W LOC OF UNSP DURATION, INIT (5) History of chronic constipation Assessment/Plan: colace liquid, bowel regimen Code(s): Z87.19 - PERSONAL HISTORY OF OTHER DISEASES OF THE DIGESTIVE SYSTEM (6) Requires aspiration precautions Assessment/Plan: aspiration precautions as noted above Code(s): Z91.89 - OTH PERSONAL RISK FACTORS, NOT ELSEWHERE CLASSIFIED (7) History of traumatic brain injury Assessment/Plan: monitor mental status Code(s): Z87.820 - PERSONAL HISTORY OF TRAUMATIC BRAIN INJURY (8) Restlessness and agitation Assessment/Plan: On scheduled Clonozepam Code(s): R45.1 - RESTLESSNESS AND AGITATION (9) Prophylactic measure Assessment/Plan: fen monitor electrolyltes honey thick liquids, aspiration precautions, dysphagia pureed diet. prophy [facility] physical therapy Code(s): Z29.9 - ENCOUNTER FOR PROPHYLACTIC MEASURES, UNSPECIFIED Discussed patient's status son Neil. Visit type - Emergency Visit Emergency Visit: Yes ED Registration Date: 09/03/18 Care time: The patient presented to the Emergency Department on the above date and was hospitalized for further evaluation of their emergent condition. - New Patient This patient is new to me today: Yes Date on this admission: 09/10/18 - Critical Care Critical Care patient: No
[2018-09-09] MEDS ORDERED: PT OWN MED DRAWER 7, Y5N ONE ×3 (09:55→23:07)
[2018-09-09] MEDS: ESCITALOPRAM OXALATE 10 MG TABLET (FP) PO SCH (10:01)
[2018-09-09] MEDS: HEPARIN NA (PORCINE) 5,000 UNITS/ML 1ML VIAL SQ SCH ×2 (10:01→23:43)
[2018-09-09] MEDS: clonazePAM 0.5 MG TABLET PO SCH ×2 (10:01→23:44)
--- NOTE | 2018-09-09 11:54 | PN ---
Progress Note (short form) - Note Progress Note: NAD. Confused. No fevers recorded. No acute events overnight. Intake & Output 09/06/18 09/07/18 09/08/18 09/09/18 23:59 23:59 23:59 23:59 Intake Total 876 818 1437 Balance 942 438 4125 Weight 134 lb 11.2 oz 134 lb 14.4 oz 133 lb 127 lb 8 oz Last Vital Signs Temp Pulse Resp BP Pulse Ox 97.5 F L 85 20 125/65 97 09/09/18 06:00 09/09/18 06:00 09/09/18 06:00 09/09/18 06:00 09/08/18 09:00 Active Medications Acetaminophen (Tylenol -) 650 mg PO Q6H PRN PRN Reason: PAIN Albuterol/Ipratropium (Duoneb -) 1 amp NEB RQID [facility] Last Admin: 09/09/18 11:40 Dose: 1 amp Clonazepam (Klonopin -) 0.5 mg PO HS [facility] Last Admin: 09/08/18 22:07 Dose: 0.5 mg Clonazepam (Klonopin -) 0.25 mg PO DAILY [facility] Last Admin: 09/09/18 10:01 Dose: 0.25 mg Doxepin HCl (Sinequan -) 10 mg PO HS [facility] Last Admin: 09/08/18 22:03 Dose: 10 mg Escitalopram Oxalate (Lexapro -) 10 mg PO DAILY [facility] Last Admin: 09/09/18 10:01 Dose: 10 mg Heparin Sodium (Porcine) (Heparin -) 5,000 unit SQ BID [facility] Last Admin: 09/09/18 10:01 Dose: 5,000 unit Piperacillin Sod/Tazobactam (Sod 3.375 gm/ Dextrose) 50 mls @ 100 mls/hr IVPB Q8H-IV [facility]; Protocol Last Admin: 09/09/18 10:01 Dose: 100 mls/hr Senna (Senna -) 2 tab PO HS PRN PRN Reason: CONSTIPATION Gen: NAD at rest Heart: RRR Lung: decreased breath sounds at the bases Abd: soft, nontender Ext: no edema Problem List - Problems (1) Pneumonia Code(s): J18.9 - PNEUMONIA, UNSPECIFIED ORGANISM (2) Sepsis Code(s): A41.9 - SEPSIS, UNSPECIFIED ORGANISM A/P Pneumonia likely Aspiration Sepsis COPD Dementia h/o TBI - ABX per ID: Currently on Zosyn: Consider de-escalation - O2 to keep SpO2 >90% - inhaled bronchodilators as needed - aspiration precautions - DVT prophylaxis Dr Stone
[2018-09-09 14:34] LABS: ALBUMIN 2.8 g/dl (3.4-5.0); BILIRUBIN,TOTAL 0.2 mg/dL (0.2-1); BLOOD UREA NITROGEN 11.4 mg/dL (7-18); CALCIUM 8.7 mg/dL (8.5-10.1); CREATININE 0.7 mg/dL (0.55-1.3); HEMOGLOBIN 12.8 GM/dL (11.7-16.9); MAGNESIUM 2.2 mg/dL (1.8-2.4); MCH 30.1 pg (25.7-33.7); MCHC 33.7 g/dl (32.0-35.9); MEAN CELL VOLUME 89.5 fl (80-96); MEAN PLT VOLUME 8.5 fl (7.5-11.1); PLATELET COUNT 402 K/MM3 (134-434); POTASSIUM 4.3 mmol/L (3.5-5.1); RBC 4.24 M/mm3 (4.00-5.60); RDW 13.3 % (11.9-15.9); TOT PROT 6.6 g/dl (6.4-8.2); WHITE BLOOD COUNT 8.7 K/mm3 (4.0-10.0)
[2018-09-09 19:38] LABS: BASO % 0.4 % (0-2.0); EOS % 5.4 % (0-4.5); HEMATOCRIT 34.9 % (35.4-49); HEMOGLOBIN 11.7 GM/dL (11.7-16.9); LYMPH % 17.1 % (8-40); MCH 30.2 pg (25.7-33.7); MCHC 33.5 g/dl (32.0-35.9); MEAN CELL VOLUME 90.1 fl (80-96); MEAN PLT VOLUME 8.4 fl (7.5-11.1); MONO % 5.2 % (3.8-10.2); NEUT % 71.9 % (42.8-82.8); PLATELET COUNT 350 K/MM3 (134-434); RBC 3.87 M/mm3 (4.00-5.60); RDW 13.3 % (11.9-15.9); WHITE BLOOD COUNT 8.5 K/mm3 (4.0-10.0)
[2018-09-09 19:59] LABS: ALBUMIN 2.6 g/dl (3.4-5.0); BILIRUBIN,TOTAL 0.1 mg/dL (0.2-1); BLOOD UREA NITROGEN 12.5 mg/dL (7-18); CALCIUM 8.7 mg/dL (8.5-10.1); MAGNESIUM 2.3 mg/dL (1.8-2.4); POTASSIUM 4.2 mmol/L (3.5-5.1); TOT PROT 5.9 g/dl (6.4-8.2)
[2018-09-09 20:00] LABS: CREATININE 0.7 mg/dL (0.55-1.3)
[2018-09-09] MEDS: DOXEPIN HCL 10 MG CAPSULE PO SCH (23:44)
[2018-09-10] MEDS ORDERED: PIPERACILLIN/TAZOBACTAM 3.375 GM VIAL IVPB ONE ×3 (02:24→18:28)
[2018-09-10] MEDS ORDERED: DEXTROSE 5%-WATER - 50 ML IVPB ONE ×3 (02:25→18:28)
[2018-09-10] MEDS: PIPERACILLIN/TAZOB 3.375 GM 3.375 GM in DEXTROSE 5%-WATER - 50 ML IVPB SCH ×3 (02:30→18:34)
[2018-09-10] MEDS: ALBUTEROL SO4 2.5/IPRATROPIUM 0.5 INH SOL 3 ML VIAL.NEB. NEB SCH ×4 (07:31→20:32)
--- NOTE | 2018-09-10 09:30 | PN ---
Physical Exam: SUBJECTIVE: Patient seen and examined. Patient seen and examined. No signs and symptoms of distressed. Pt denies CP, SOB, N/v/d, or any discomfort OBJECTIVE: Constitutional: Yes: Well Nourished, No Distress, Calm, Thin Eyes: Yes: WNL HENT: Yes: WNL Neck: Yes: Supple Cardiovascular: Yes: Regular Rate and Rhythm Respiratory: Yes: Cough, Diminished Bilateral at the bases , Other (left upper lobe with rhonchi. tolerating room air.) Gastrointestinal: Yes: Normal Bowel Sounds, Soft ...Rectal Exam: Yes: Deferred Genitourinary: Yes: WNL Extremities: Yes: WNL Edema: No Integumentary: Yes: WNL Neurological: Yes: Alert, Oriented to person, Confusion ...Motor Strength: WNL Psychiatric: Yes: Alert, Oriented Vital Signs Period Temp Pulse Resp BP Sys/Altamirano Pulse Ox Last 24 Hr 97.2 F-97.9 F 55-78 18-20 91-158/61-74 98 Laboratory Results - last 24 hr 09/09/18 09/09/18 09/09/18 13:52 13:52 19:16 WBC 8.7 8.5 RBC 4.24 3.87 L Hgb 12.8 11.7 Hct 38.0 34.9 L MCV 89.5 90.1 MCH 30.1 30.2 MCHC 33.7 33.5 RDW 13.3 13.3 Plt Count 402 D 350 MPV 8.5 8.4 Absolute Neuts (auto) 6.1 Neutrophils % 71.9 D Lymphocytes % 17.1 D Monocytes % 5.2 Eosinophils % 5.4 H D Basophils % 0.4 Nucleated RBC % 0 Sodium 143 Potassium 4.3 Chloride 109 H Carbon Dioxide 27 Anion Gap 6 L BUN 11.4 Creatinine 0.7 Est GFR (CKD-EPI)AfAm 113.18 Est GFR (CKD-EPI)NonAf 97.65 Random Glucose 107 H Calcium 8.7 Magnesium 2.2 Total Bilirubin 0.2 AST 17 ALT 20 Alkaline Phosphatase 115 Total Protein 6.6 Albumin 2.8 L 09/09/18 19:16 WBC RBC Hgb Hct MCV MCH MCHC RDW Plt Count MPV Absolute Neuts (auto) Neutrophils % Lymphocytes % Monocytes % Eosinophils % Basophils % Nucleated RBC % Sodium 141 Potassium 4.2 Chloride 107 Carbon Dioxide 28 Anion Gap 6 L BUN 12.5 Creatinine 0.7 Est GFR (CKD-EPI)AfAm 113.18 Est GFR (CKD-EPI)NonAf 97.65 Random Glucose 100 Calcium 8.7 Magnesium 2.3 Total Bilirubin 0.1 L AST 13 L ALT 19 Alkaline Phosphatase 100 Total Protein 5.9 L Albumin 2.6 L Active Medications Generic Name Dose Route Start Last Admin Trade Name Freq PRN Reason Stop Dose Admin Acetaminophen 650 mg 09/06/18 11:55 Tylenol - PO Q6H PRN PAIN Albuterol/Ipratropium 1 amp 09/04/18 11:10 09/10/18 07:31 Duoneb - NEB 1 amp RQID LARA Administration Clonazepam 0.5 mg 09/03/18 22:00 09/09/18 23:44 Klonopin - PO 0.5 mg HS LARA Administration Clonazepam 0.25 mg 09/04/18 10:00 09/09/18 10:01 Klonopin - PO 0.25 mg DAILY LARA Administration Doxepin HCl 10 mg 09/03/18 22:00 09/09/18 23:44 Sinequan - PO 10 mg HS LARA Administration Escitalopram Oxalate 10 mg 09/04/18 10:00 09/09/18 10:01 Lexapro - PO 10 mg DAILY LARA Administration Heparin Sodium (Porcine) 5,000 unit 09/03/18 22:00 09/09/18 23:43 Heparin - SQ 5,000 unit BID LARA Administration Piperacillin Sod/Tazobactam 50 mls @ 100 mls/hr 09/04/18 18:00 09/10/18 02:30 Sod 3.375 gm/ Dextrose IVPB 100 mls/hr Q8H-IV LARA Administration Protocol Senna 2 tab 09/06/18 11:29 Senna - PO HS PRN CONSTIPATION ASSESSMENT/PLAN: Patient presents to the ED with acute hypoxia, non productive cough, worsening AMS and leukocytosis. Admitted for sepsis likely secondary to acute aspiration - pneumonia. Sepsis -Chest xray shows left lower lobe infiltrate. He has been on Zosyn since admission and his - mentation has improved. -Sepsis resolved. -On Zosyn- Determination of length of antibiotics to be determined by ID. Aspiration pneumonia due to food (regurgitated) -continue aspiration precautions -Patient to sit up at all times with meals -feed small amounts slowly -do not lay flat after meals -do not eat or drink with a straw -daily mouth care -per mbs: honey thick liquids on teaspoon only, have patient swallow hard twice with each teaspoon, crush meds on honey thick liq. speech and swallow following, recommendations noted and appreciated. -per speech and swallow, patient family can purchase Provale cup on line to help prevent aspiration Major depressive disorder -continue Clonazepam -lexapro -hold Zyprexa Traumatic brain injury of unknown intent Monitor mental status and agitation History of chronic constipation -colace -liquid -bowel regimen Requires aspiration precautions aspiration precautions as noted above History of Traumatic Brain Injury monitor mental status Restless Agitation -On scheduled Clonozepam FEN -monitor electrolyltes -honey thick liquids, aspiration precautions, dysphagia pureed diet. DVT Prophylaxis -SCDs -physical therapy Dispo -Discharge planning -DNR Visit type - Emergency Visit Emergency Visit: Yes ED Registration Date: 09/03/18 Care time: The patient presented to the Emergency Department on the above date and was hospitalized for further evaluation of their emergent condition. - New Patient This patient is new to me today: No - Critical Care Critical Care patient: No
[2018-09-10] MEDS: clonazePAM 0.5 MG TABLET PO SCH ×3 (09:34→22:19)
[2018-09-10] MEDS: HEPARIN NA (PORCINE) 5,000 UNITS/ML 1ML VIAL SQ SCH ×2 (09:57→22:20)
[2018-09-10] MEDS: ESCITALOPRAM OXALATE 10 MG TABLET (FP) PO SCH (09:57)
--- NOTE | 2018-09-10 11:12 | PN ---
Progress Note (short form) - Note Progress Note: NAD. Confused. No fevers recorded. No acute events overnight. Intake & Output 09/07/18 09/08/18 09/09/18 09/10/18 23:59 23:59 23:59 23:59 Intake Total 450 1020 600 50 Balance 450 1020 600 50 Weight 134 lb 14.4 oz 133 lb 127 lb 8 oz 130 lb Last Vital Signs Temp Pulse Resp BP Pulse Ox 97.2 F L 55 L 20 158/72 98 09/10/18 06:00 09/10/18 06:00 09/10/18 06:00 09/10/18 06:00 09/09/18 21:00 Active Medications Acetaminophen (Tylenol -) 650 mg PO Q6H PRN PRN Reason: PAIN Albuterol/Ipratropium (Duoneb -) 1 amp NEB RQID [facility] Last Admin: 09/10/18 07:31 Dose: 1 amp Clonazepam (Klonopin -) 0.5 mg PO HS [facility] Last Admin: 09/09/18 23:44 Dose: 0.5 mg Clonazepam (Klonopin -) 0.25 mg PO DAILY [facility] Last Admin: 09/10/18 09:57 Dose: 0.25 mg Doxepin HCl (Sinequan -) 10 mg PO HS [facility] Last Admin: 09/09/18 23:44 Dose: 10 mg Escitalopram Oxalate (Lexapro -) 10 mg PO DAILY [facility] Last Admin: 09/10/18 09:57 Dose: 10 mg Heparin Sodium (Porcine) (Heparin -) 5,000 unit SQ BID [facility] Last Admin: 09/10/18 09:57 Dose: 5,000 unit Piperacillin Sod/Tazobactam (Sod 3.375 gm/ Dextrose) 50 mls @ 100 mls/hr IVPB Q8H-IV [facility]ARA; Protocol Last Admin: 09/10/18 09:58 Dose: 100 mls/hr Senna (Senna -) 2 tab PO HS PRN PRN Reason: CONSTIPATION Gen: NAD at rest Heart: RRR Lung: decreased breath sounds at the bases Abd: soft, nontender Ext: no edema Laboratory Results - last 24 hr 09/09/18 09/09/18 09/09/18 13:52 13:52 19:16 WBC 8.7 8.5 RBC 4.24 3.87 L Hgb 12.8 11.7 Hct 38.0 34.9 L MCV 89.5 90.1 MCH 30.1 30.2 MCHC 33.7 33.5 RDW 13.3 13.3 Plt Count 402 D 350 MPV 8.5 8.4 Absolute Neuts (auto) 6.1 Neutrophils % 71.9 D Lymphocytes % 17.1 D Monocytes % 5.2 Eosinophils % 5.4 H D Basophils % 0.4 Nucleated RBC % 0 Sodium 143 Potassium 4.3 Chloride 109 H Carbon Dioxide 27 Anion Gap 6 L BUN 11.4 Creatinine 0.7 Est GFR (CKD-EPI)AfAm 113.18 Est GFR (CKD-EPI)NonAf 97.65 Random Glucose 107 H Calcium 8.7 Magnesium 2.2 Total Bilirubin 0.2 AST 17 ALT 20 Alkaline Phosphatase 115 Total Protein 6.6 Albumin 2.8 L 09/09/18 19:16 WBC RBC Hgb Hct MCV MCH MCHC RDW Plt Count MPV Absolute Neuts (auto) Neutrophils % Lymphocytes % Monocytes % Eosinophils % Basophils % Nucleated RBC % Sodium 141 Potassium 4.2 Chloride 107 Carbon Dioxide 28 Anion Gap 6 L BUN 12.5 Creatinine 0.7 Est GFR (CKD-EPI)AfAm 113.18 Est GFR (CKD-EPI)NonAf 97.65 Random Glucose 100 Calcium 8.7 Magnesium 2.3 Total Bilirubin 0.1 L AST 13 L ALT 19 Alkaline Phosphatase 100 Total Protein 5.9 L Albumin 2.6 L Problem List - Problems (1) Pneumonia Code(s): J18.9 - PNEUMONIA, UNSPECIFIED ORGANISM (2) Sepsis Code(s): A41.9 - SEPSIS, UNSPECIFIED ORGANISM A/P Pneumonia likely Aspiration Sepsis COPD Dementia h/o TBI - ABX per ID: Currently on Zosyn: Consider de-escalation - O2 to keep SpO2 >90% - inhaled bronchodilators as needed - aspiration precautions - DVT prophylaxis Dr Stone
[2018-09-10] MEDS ORDERED: PT OWN MED DRAWER 7, Y5N ONE (22:13)
[2018-09-10] MEDS: DOXEPIN HCL 10 MG CAPSULE PO SCH (22:19)
[2018-09-11] MEDS ORDERED: PIPERACILLIN/TAZOBACTAM 3.375 GM VIAL IVPB ONE ×2 (02:23→09:59)
[2018-09-11] MEDS: PIPERACILLIN/TAZOB 3.375 GM 3.375 GM in DEXTROSE 5%-WATER - 50 ML IVPB SCH ×2 (02:27→10:06)
[2018-09-11] MEDS: ALBUTEROL SO4 2.5/IPRATROPIUM 0.5 INH SOL 3 ML VIAL.NEB. NEB SCH ×3 (07:10→15:53)
--- NOTE | 2018-09-11 08:36 | PN ---
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 Patient is a resident of [facility] for rehabilitation. He presents to the ED on 09/03/2018 via EMS from [facility] with hypoxia and coughing up sputum and pieces of food. Patient is unable to provide a history secondary to dementia and TBI, he is able to answer some questions. In the ED son reported that patient was receiving an incorrect dose of Zyprexa at the [place] and noted his father to be more lethargic. Patient reportedly was on Zyprexa 5mg BID, but was receiving Zyprexa 10mg BID instead. He is being admitted for sepsis likely secondary to aspiration pneumonia and has been started on Zosyn. - Current Medication List Current Medications: Active Medications Acetaminophen (Tylenol -) 650 mg PO Q6H PRN PRN Reason: PAIN Albuterol/Ipratropium (Duoneb -) 1 amp NEB RQID [facility] Last Admin: 09/11/18 07:10 Dose: 1 amp Clonazepam (Klonopin -) 0.5 mg PO HS [facility] Last Admin: 09/10/18 22:19 Dose: 0.5 mg Clonazepam (Klonopin -) 0.25 mg PO DAILY [facility] Last Admin: 09/10/18 09:57 Dose: 0.25 mg Doxepin HCl (Sinequan -) 10 mg PO HS [facility] Last Admin: 09/10/18 22:19 Dose: 10 mg Escitalopram Oxalate (Lexapro -) 10 mg PO DAILY [facility] Last Admin: 09/10/18 09:57 Dose: 10 mg Heparin Sodium (Porcine) (Heparin -) 5,000 unit SQ BID [facility] Last Admin: 09/10/18 22:20 Dose: 5,000 unit Piperacillin Sod/Tazobactam (Sod 3.375 gm/ Dextrose) 50 mls @ 100 mls/hr IVPB Q8H-IV [facility]; Protocol Last Admin: 09/11/18 02:27 Dose: 100 mls/hr Senna (Senna -) 2 tab PO HS PRN PRN Reason: CONSTIPATION - Objective Vital Signs: Vital Signs Temperature 97.9 F 07/22/19 06:00 Pulse Rate 59 L 09/11/18 06:00 Respiratory Rate 18 09/11/18 06:00 Blood Pressure 115/68 09/11/18 06:00 O2 Sat by Pulse Oximetry (%) 95 09/10/18 21:00 Labs: CBC, BMP 09/09/18 19:16 09/09/18 19:16 INR, PTT INR 1.31 (0.83-1.09) H 09/04/18 07:35
[2018-09-11 09:46] LABS: BASO % 0.5 % (0-2.0); HEMATOCRIT 37.5 % (35.4-49); HEMOGLOBIN 12.6 GM/dL (11.7-16.9); LYMPH % 25.2 % (8-40); MCH 30.3 pg (25.7-33.7); MCHC 33.5 g/dl (32.0-35.9); MEAN CELL VOLUME 90.6 fl (80-96); MEAN PLT VOLUME 7.9 fl (7.5-11.1); MONO % 6.9 % (3.8-10.2); NEUT % 61.4 % (42.8-82.8); PLATELET COUNT 360 K/MM3 (134-434); RBC 4.14 M/mm3 (4.00-5.60); RDW 13.5 % (11.9-15.9); WHITE BLOOD COUNT 6.2 K/mm3 (4.0-10.0)
[2018-09-11] MEDS ORDERED: DEXTROSE 5%-WATER - 50 ML IVPB ONE (09:59)
[2018-09-11] MEDS: HEPARIN NA (PORCINE) 5,000 UNITS/ML 1ML VIAL SQ SCH (10:05)
[2018-09-11] MEDS: ESCITALOPRAM OXALATE 10 MG TABLET (FP) PO SCH (10:05)
[2018-09-11] MEDS: clonazePAM 0.5 MG TABLET PO SCH (10:06)
[2018-09-11 10:17] LABS: ALBUMIN 2.8 g/dl (3.4-5.0); BILIRUBIN,TOTAL 0.3 mg/dL (0.2-1); BLOOD UREA NITROGEN 11.9 mg/dL (7-18); CALCIUM 9.1 mg/dL (8.5-10.1); CREATININE 0.7 mg/dL (0.55-1.3); MAGNESIUM 2.4 mg/dL (1.8-2.4); POTASSIUM 4.3 mmol/L (3.5-5.1); TOT PROT 6.4 g/dl (6.4-8.2)
[2018-09-11 12:10] VITALS: BP 122/77; PULSE 53; TEMP 98
--- NOTE | 2018-09-11 13:29 | PN ---
Progress Note (short form) - Note Progress Note: NAD. No fevers recorded. No acute events overnight. CXR: Resolving LLL PNA Intake & Output 09/08/18 09/09/18 09/10/18 09/11/18 23:59 23:59 23:59 23:59 Intake Total 1020 600 100 50 Balance 1020 600 100 50 Weight 133 lb 127 lb 8 oz 130 lb 125 lb 8 oz Last Vital Signs Temp Pulse Resp BP Pulse Ox 98 F 53 L 18 122/77 95 09/11/18 10:00 09/11/18 10:00 09/11/18 10:00 09/11/18 10:00 09/10/18 21:00 Active Medications Acetaminophen (Tylenol -) 650 mg PO Q6H PRN PRN Reason: PAIN Albuterol/Ipratropium (Duoneb -) 1 amp NEB RQID [facility] Last Admin: 09/11/18 11:11 Dose: 1 amp Clonazepam (Klonopin -) 0.5 mg PO HS [facility] Last Admin: 09/10/18 22:19 Dose: 0.5 mg Clonazepam (Klonopin -) 0.25 mg PO DAILY [facility] Last Admin: 09/11/18 10:06 Dose: 0.25 mg Doxepin HCl (Sinequan -) 10 mg PO HS [facility] Last Admin: 09/10/18 22:19 Dose: 10 mg Escitalopram Oxalate (Lexapro -) 10 mg PO DAILY [facility] Last Admin: 09/11/18 10:05 Dose: 10 mg Heparin Sodium (Porcine) (Heparin -) 5,000 unit SQ BID [facility] Last Admin: 09/11/18 10:05 Dose: 5,000 unit Piperacillin Sod/Tazobactam (Sod 3.375 gm/ Dextrose) 50 mls @ 100 mls/hr IVPB Q8H-IV [facility]; Protocol Last Admin: 09/11/18 10:06 Dose: 100 mls/hr Senna (Senna -) 2 tab PO HS PRN PRN Reason: CONSTIPATION Gen: NAD at rest Heart: RRR Lung: decreased breath sounds at the bases Abd: soft, nontender Ext: no edema Laboratory Results - last 24 hr 09/11/18 09/11/18 09:18 09:18 WBC 6.2 RBC 4.14 Hgb 12.6 Hct 37.5 MCV 90.6 MCH 30.3 MCHC 33.5 RDW 13.5 Plt Count 360 MPV 7.9 Absolute Neuts (auto) 3.8 Neutrophils % 61.4 Lymphocytes % 25.2 D Monocytes % 6.9 Eosinophils % 6.0 H Basophils % 0.5 Nucleated RBC % 0 Sodium 141 Potassium 4.3 Chloride 104 Carbon Dioxide 32 Anion Gap 5 L BUN 11.9 Creatinine 0.7 Est GFR (CKD-EPI)AfAm 113.18 Est GFR (CKD-EPI)NonAf 97.65 Random Glucose 80 Calcium 9.1 Magnesium 2.4 Total Bilirubin 0.3 AST 18 ALT 26 Alkaline Phosphatase 110 Total Protein 6.4 Albumin 2.8 L Problem List - Problems (1) Pneumonia Code(s): J18.9 - PNEUMONIA, UNSPECIFIED ORGANISM (2) Sepsis Code(s): A41.9 - SEPSIS, UNSPECIFIED ORGANISM A/P Pneumonia likely Aspiration Sepsis COPD Dementia h/o TBI - ABX per ID: Currently on Zosyn: Consider de-escalation - O2 to keep SpO2 >90% - inhaled bronchodilators as needed - aspiration precautions - DVT prophylaxis - D/C planning Dr Stone
--- NOTE | 2018-09-11 13:58 | PN ---
Progress Note, Physician History of Present Illness: AWAKE IN BED + COUGH NOTED BREATHING NON-LABORED TEMPS DOWN AFEBRILE WBC IMPROVED BC (-) SPUTUM C/S NORMAL YOLANDA - Current Medication List Current Medications: Active Medications Acetaminophen (Tylenol -) 650 mg PO Q6H PRN PRN Reason: PAIN Albuterol/Ipratropium (Duoneb -) 1 amp NEB RQID [facility] Last Admin: 09/11/18 11:11 Dose: 1 amp Clonazepam (Klonopin -) 0.5 mg PO HS [facility] Last Admin: 09/10/18 22:19 Dose: 0.5 mg Clonazepam (Klonopin -) 0.25 mg PO DAILY [facility] Last Admin: 09/11/18 10:06 Dose: 0.25 mg Doxepin HCl (Sinequan -) 10 mg PO HS [facility] Last Admin: 09/10/18 22:19 Dose: 10 mg Escitalopram Oxalate (Lexapro -) 10 mg PO DAILY [facility] Last Admin: 09/11/18 10:05 Dose: 10 mg Heparin Sodium (Porcine) (Heparin -) 5,000 unit SQ BID [facility] Last Admin: 09/11/18 10:05 Dose: 5,000 unit Piperacillin Sod/Tazobactam (Sod 3.375 gm/ Dextrose) 50 mls @ 100 mls/hr IVPB Q8H-IV [facility]; Protocol Last Admin: 09/11/18 10:06 Dose: 100 mls/hr Senna (Senna -) 2 tab PO HS PRN PRN Reason: CONSTIPATION - Objective Vital Signs: Vital Signs Temperature 98 F 09/11/18 10:00 Pulse Rate 53 L 09/11/18 10:00 Respiratory Rate 18 09/11/18 10:00 Blood Pressure 122/77 09/11/18 10:00 O2 Sat by Pulse Oximetry (%) 95 09/10/18 21:00 Constitutional: Yes: No Distress Eyes: Yes: Conjunctiva Clear Cardiovascular: Yes: Regular Rate and Rhythm, S1, S2 Respiratory: Yes: Rhonchi Gastrointestinal: Yes: Normal Bowel Sounds, Soft. No: Tenderness Edema: No Labs: CBC, BMP 09/11/18 09:18 09/11/18 09:18 INR, PTT INR 1.31 (0.83-1.09) H 09/04/18 07:35 Assessment/Plan PROBABLE ASP LLL PNEUMONIA R/O SEPSIS SECONDARY TO PNEUMONIA HX ANOXIC BRAIN INJURY SUBSTITUTE PO AUGMENTIN X 7D ASP PRECAUTIONS
--- NOTE | 2018-09-11 15:23 | DS ---
Physical Exam: SUBJECTIVE: Patient seen and examined OBJECTIVE: Vital Signs Period Temp Pulse Resp BP Sys/Altamirano Pulse Ox Last 24 Hr 97.7 F-98 F 53-83 18-20 105-122/66-77 95 PHYSICAL EXAM GENERAL: The patient is awake, alert, and fully oriented, in no acute distress. HEAD: Normal with no signs of trauma. EYES: PERRL, extraocular movements intact, sclera anicteric, conjunctiva clear. ENT: Ears normal, nares patent, oropharynx clear without exudates, moist mucous membranes. NECK: Trachea midline, full range of motion, supple. LUNGS: Breath sounds equal, clear to auscultation bilaterally, no wheezes, no crackles, no accessory muscle use. HEART: Regular rate and rhythm, S1, S2 without murmur, rub or gallop. ABDOMEN: Soft, nontender, nondistended, normoactive bowel sounds, no guarding, no rebound, no hepatosplenomegaly, no masses. EXTREMITIES: 2+ pulses, warm, well-perfused, no edema. NEUROLOGICAL: Cranial nerves II through XII grossly intact. Normal speech, gait not observed. PSYCH: Normal mood, normal affect. SKIN: Warm, dry, normal turgor, no rashes or lesions noted. LABS Laboratory Results - last 24 hr 09/11/18 09/11/18 09:18 09:18 WBC 6.2 RBC 4.14 Hgb 12.6 Hct 37.5 MCV 90.6 MCH 30.3 MCHC 33.5 RDW 13.5 Plt Count 360 MPV 7.9 Absolute Neuts (auto) 3.8 Neutrophils % 61.4 Lymphocytes % 25.2 D Monocytes % 6.9 Eosinophils % 6.0 H Basophils % 0.5 Nucleated RBC % 0 Sodium 141 Potassium 4.3 Chloride 104 Carbon Dioxide 32 Anion Gap 5 L BUN 11.9 Creatinine 0.7 Est GFR (CKD-EPI)AfAm 113.18 Est GFR (CKD-EPI)NonAf 97.65 Random Glucose 80 Calcium 9.1 Magnesium 2.4 Total Bilirubin 0.3 AST 18 ALT 26 Alkaline Phosphatase 110 Total Protein 6.4 Albumin 2.8 L HOSPITAL COURSE: Date of Admission:09/03/18 Date of Discharge: 09/11/18 Minutes to complete discharge: 60 Discharge Summary Reason For Visit: TRAUMATIC BRAIN INJURY;ASPIRATION PNEUMONIA;PNEUMO Current Active Problems Aspiration pneumonia due to food (regurgitated) (Acute) History of chronic constipation (Acute) History of traumatic brain injury (Acute) Hypernatremia (Acute) Major depressive disorder (Acute) Pneumonia (Acute) Prophylactic measure (Acute) Requires aspiration precautions (Acute) Restlessness and agitation (Acute) Sepsis (Acute) Traumatic brain injury of unknown intent (Acute) Hospital Course: Patient is a 67 year old male with a past medical history of chronic constipation, major depressive disorder, generalized anxiety disorder, chronic insomnia with impaired sleep/wake cycle, dementia with behavioral disturbances, 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 Patient is a resident of [facility] for rehabilitation. He presents to the ED on 09/03/2018 via EMS from [facility] with hypoxia and coughing up sputum and pieces of food. Patient is unable to provide a history secondary to dementia and TBI, he is able to answer some questions. He was admitted for sepsis likely secondary to aspiration pneumonia and has been started on Zosyn. Course of treatment: (1) Sepsis Assessment/Plan: Patient presents to the ED with acute hypoxia, non productive cough, worsening AMS and leukocytosis Chest xray shows left lower lobe infiltrate. He has been on Zosyn since admission and his mentation improved.Course completed with 7 days total. Will remain on augmention PO for another 7 days in total. He was admitted for sepsis likely secondary to acute aspiration pneumonia. Sepsis now resolved. (2) Aspiration pneumonia due to food (regurgitated) Assessment/Plan: Pneumonia most likely related to aspiration. Seen by speech pathology and continue aspiration precautionsupon return to skilled facility -Patient to sit up at all times with meals -feed small amounts slowly -do not lay flat after meals -do not eat or drink with a straw -daily mouth care -per mbs: honey thick liquids on teaspoon only, have patient swallow hard twice with each teaspoon, crush meds on honey thick liq. speech and swallow following, recommendations noted and appreciated. -per speech and swallow, patient family can purchase Provale cup on line to help prevent aspiration (3) Major depressive disorder Assessment/Plan: continue Clonazepam scheduled and lexapro (4) Traumatic brain injury of unknown intent Assessment/Plan: Monitor mental status and agitation. (5) History of chronic constipation Assessment/Plan: Maintained on bowel regimine during hosptial stay May continue colace liquid, bowel regimen (6) Requires aspiration precautions Assessment/Plan: aspiration precautions as noted above (7) History of traumatic brain injury Assessment/Plan: monitor mental status upon reurn to skilled facility (8) Restlessness and agitation Assessment/Plan: Maintained on Clonozepam during hosptial stay. May resume Code(s): R45.1 - RESTLESSNESS AND AGITATION May return back to retirement facility Condition: Improved - Instructions Diet, Activity, Other Instructions: Seen by speech pathology and MBS done. May continue dysphagia diet upon return to retirement facility with puree and holey thickened liquids. Recommendation of monitoring when feeding and maintain upright position. May resume physical therapy for increased mobility and use of assistive devices. - Home Medications Comprehensive Discharge Medication List: Ambulatory Orders Acetaminophen [Tylenol] 650 mg PO QID PRN 09/03/18 Clonazepam 0.125 mg PO DAILY 09/03/18 Clonazepam 0.25 mg PO DAILY 09/03/18 Clonazepam 0.5 mg PO HS 09/03/18 Doxepin HCl [Sinequan -] 10 mg PO HS 09/03/18 Escitalopram Oxalate [Lexapro -] 10 mg PO DAILY 09/03/18 Magnesium Hydrox 2400MG/30Ml [Milk of Magnesia -] 30 ml PO HS PRN 09/03/18 Polyethylene Glycol 3350 [Miralax (For Daily Use) -] 17 gm PO DAILY 09/03/18 Sennosides [Senna Lax] 17.2 mg PO HS 09/03/18 Problem List - Problems (1) Aspiration pneumonia due to food (regurgitated) Code(s): J69.0 - PNEUMONITIS DUE TO INHALATION OF FOOD AND VOMIT Qualifiers: Laterality: left Lung location: lower lobe of lung Qualified Code(s): J69.0 - Pneumonitis due to inhalation of food and vomit (2) History of chronic constipation Code(s): Z87.19 - PERSONAL HISTORY OF OTHER DISEASES OF THE DIGESTIVE SYSTEM (3) History of traumatic brain injury Code(s): Z87.820 - PERSONAL HISTORY OF TRAUMATIC BRAIN INJURY (4) Hypernatremia Code(s): E87.0 - HYPEROSMOLALITY AND HYPERNATREMIA (5) Major depressive disorder Code(s): F32.9 - MAJOR DEPRESSIVE DISORDER, SINGLE EPISODE, UNSPECIFIED (6) Pneumonia Code(s): J18.9 - PNEUMONIA, UNSPECIFIED ORGANISM (7) Requires aspiration precautions Code(s): Z91.89 - OTH PERSONAL RISK FACTORS, NOT ELSEWHERE CLASSIFIED This patient is new to me today: Yes Date on this admission: 09/11/18 Emergency Visit: Yes ED Registration Date: 09/03/18 Care time: The patient presented to the Emergency Department on the above date and was hospitalized for further evaluation of their emergent condition. Critical Care patient: No - Discharge Referral Referred to [facility] No
[2018-09-11] MEDS ORDERED: AMOX TR/POT CLAV 875MG/125MG TABLETS (FP) PO SCH (17:30)
== END 2018-09-11 18:10 | disposition home or self-care (01) | DRG 871 ==
LOC: JER 08:53 → JERBED 12:00 → J8W 15:24
PROVIDERS: ADMIT Internal Medicine; ATTEND Nurse Practitioner Acute Care
DX: A41.9 Sepsis, unspecified organism (principal); J69.0 Pneumonitis due to inhalation of food and vomit; J96.01 Acute respiratory failure with hypoxia; F03.91 Unspecified dementia, unspecified severity, with behavioral disturbance; E87.0 Hyperosmolality and hypernatremia; I25.2 Old myocardial infarction; J44.9 Chronic obstructive pulmonary disease, unspecified; K59.00 Constipation, unspecified; G47.00 Insomnia, unspecified; R00.0 Tachycardia, unspecified; Z66 Do not resuscitate; R45.1 Restlessness and agitation; R41.82 Altered mental status, unspecified; D72.829 Elevated white blood cell count, unspecified; F41.8 Other specified anxiety disorders; S06.890S Other specified intracranial injury without loss of consciousness, sequela; Z87.820 Personal history of traumatic brain injury
CPT/HCPCS: 36415; 71045-TC-FY; 74230-TC-FY; 80053; 82803; 82962; 83605; 83735; 84100; 84484; 85025; 85027; 85610; 85730; 87040; 87070; 87077; 87205; 87899; 92611-GN; 93005; 93010; 94640; 97116-GP; 97162-GP; 99283-25; J0131; J1644; J7030